=== PATIENT | female | born 1995 | race Hispanic/Latino ===

== ENCOUNTER 2019-01-29 16:31 | Emergency (ER) | payer BC, OTHER ==
--- OUTSIDE RECORDS SUMMARY | 2019-01-29 16:39 | XMS REPORT ---
:1995 Author Organization eClinicalWorks Care Team Providers Name Role Phone Karen Trent Provider Role Unavailable Allergies, Adverse Reactions, Alerts Substance Reaction Event Type N.K.D.A. Info Not Available Non Drug Allergy Problems Problem Type Condition Code Onset Dates Condition Status Assessment Encounter for initial prescription Z30.011 Active of contraceptive pills Medications Medication Code Code Instructions Start End Date Status Dosage System Date Loestrin Fe [facility] [id number] 1-20 MG-MCG Active 1 tablet 1/20 Orally Once a day Results No Known Results Summary Purpose eClinicalWorks Submission
--- OUTSIDE RECORDS SUMMARY | 2019-01-29 16:39 | XMS REPORT ---
:1995 Author Organization eClinicalWorks Care Team Providers Name Role Phone Maggi Lin Provider Role Unavailable Allergies No Known Allergies Problems Problem Type Condition Code Onset Dates Condition Status Problem Positive test Z32.01 Active Problem Low sodium levels E87.1 Active Problem Vitamin D deficiency E55.9 Active Problem Abnormal liver function test R94.5 Active Problem Low hematocrit R71.0 Active Medications No Known Medications Results No Known Results Summary Purpose eClinicalWorks Submission
--- OUTSIDE RECORDS SUMMARY | 2019-01-29 16:39 | XMS REPORT ---
:1995 Author Organization eClinicalWorks Care Team Providers Name Role Phone Nino Rivas Provider Role Unavailable Allergies, Adverse Reactions, Alerts Substance Reaction Event Type N.K.D.A. Info Not Available Non Drug Allergy Problems Problem Type Condition Code Onset Dates Condition Status Assessment Encounter for supervision of Z34.91 Active low-risk in first trimester Assessment Encounter to determine O36.80X0 Active viability of , single or unspecified fetus Problem Positive test Z32.01 Active Problem Low sodium levels E87.1 Active Problem Vitamin D deficiency E55.9 Active Assessment Amenorrhea N91.2 Active Problem Abnormal liver function test R94.5 Active Problem Low hematocrit R71.0 Active Medications Medication Code Code Instructions Start End Date Status Dosage System Date [facility] [id number] 1-20 MG-MCG Active 1 tablet 1/20 Orally Once a day Results Name Result Date Reference Range Unit Abnormality Flag URINALYSIS AUTO W/O SCOPE (49180) ----DELFINO 1+ 20181126 ----KETONES neg [id number] ----SPECIFIC 1.030 20181126 GRAVITY ----BLO neg [id number] ----pH 6.5 20181126 ----PROTEIN neg 20181126 ----URO 0.2 20181126 ----NIT neg 20181126 ----GLUCOSE neg 20181126 ----BILIRUBIN neg 20181126 SURESWAB(R) CHLAMYDIA/ N. GONORRHOEAE RNA, TMA ----CHLAMYDIA NOT DETECTED 20181123 NOT DETECTED N TRACHOMATIS RNA, TMA, UROGENITAL ----NEISSERIA NOT DETECTED [id number] NOT DETECTED N GONORRHOEAE RNA, TMA, UROGENITAL OBSTETRIC PANEL ----ABSOLUTE 23 [id number] 0-200 cells/uL N BASOPHILS ----ABSOLUTE 62 15633702 15-500 cells/uL N EOSINOPHILS ----LYMPHOCYTES 28.0 30596442 % N ----NEUTROPHILS 64.8 60551838 % N ----PLATELET COUNT 246 20181123 140-400 Thousand/uL N ----EOSINOPHILS 0.8 77749989 % N ----RDW 13.2 73357377 11.0-15.0 % N ----MONOCYTES 6.1 33071162 % N ----MCHC 33.9 39396779 32.0-36.0 g/dL N ----MCH 29.2 96602579 27.0-33.0 pg N ----MCV 86.0 23140558 80.0-100.0 fL N ----ABSOLUTE 5054 33566781 7014-4684 cells/uL N NEUTROPHILS ----MPV 10.2 03056839 7.5-12.5 fL N ----ABSOLUTE 476 62406819 200-950 cells/uL N MONOCYTES ----ABSOLUTE 2184 98232338 850-3900 cells/uL N LYMPHOCYTES ----BASOPHILS 0.3 25429642 % N ----ANTIBODY NO ANTIBODIES 20181123 N SCREEN, RBC W/REFL DETECTED ID, TITER AND AG ----ABO GROUP A [id number] ----RH TYPE RH(D) POSITIVE 20181123 ----RPR (DX) NON-REACTIVE 20181123 NON-REACTIVE N W/REFL TITER AND CONFIRMATORY TESTING ----HEPATITIS B NON-REACTIVE 20181123 NON-REACTIVE N SURFACE ANTIGEN ----RUBELLA <0.90 20181123 index L ANTIBODY (IGG) ----WHITE BLOOD 7.8 98038037 3.8-10.8 Thousand/uL N CELL COUNT ----RED BLOOD CELL 4.08 95557004 3.80-5.10 Million/uL N COUNT ----HEMOGLOBIN 11.9 06851767 11.7-15.5 g/dL N ----HEMATOCRIT 35.1 97015787 35.0-45.0 % N VARICELLA ZOSTER VIRUS AB (IGG) ----VARICELLA 156.60 [id number] index L ZOSTER VIRUS ANTIBODY (IGG) HPV RNA, HR E6/E7, TMA ----HPV mRNA E6/E7 Detected 20181123 Not Detected A THINPREP TIS PAP W/REFL HPV RNA HR E6/E7,TMA ----CLINICAL NONE GIVEN 20181123 N INFORMATION: ----LMP: NONE GIVEN 20181123 N ----PREV. PAP: NONE GIVEN 20181123 N ----PREV. BX: NONE GIVEN 20181123 N ----SOURCE: NONE GIVEN 20181123 N CULTURE, URINE, ROUTINE ----CULTURE, SEE NOTE 20181123 A URINE, ROUTINE TRICHOMONAS VAGINALIS, QL TMA, PAP VIAL ----TRICHOMONAS NOT DETECTED 20181123 NOT DETECTED N VAGINALIS, QL TMA, PAP VIAL Summary Purpose eClinicalWorks Submission
--- OUTSIDE RECORDS SUMMARY | 2019-01-29 16:39 | XMS REPORT ---
:1995 Author Organization eClinicalWorks Care Team Providers Name Role Phone Nino Rivas Provider Role Unavailable Allergies No Known Allergies [...]
--- OUTSIDE RECORDS SUMMARY | 2019-01-29 16:39 | XMS REPORT ---
:1995 Author Organization eClinicalWorks Care Team Providers Name Role Phone Maggi Lin Provider Role Unavailable Allergies, Adverse Reactions, Alerts Substance Reaction Event Type N.K.D.A. Info Not Available Non Drug Allergy Problems Problem Type Condition Code Onset Dates Condition Status Assessment Vitamin D deficiency E55.9 Active Assessment Positive test Z32.01 Active Assessment Low hematocrit R71.0 Active Assessment Low sodium levels E87.1 Active Problem Positive test Z32.01 Active Problem Low sodium levels E87.1 Active Problem Vitamin D deficiency E55.9 Active Assessment Abnormal liver function test R94.5 Active Problem Abnormal liver function test R94.5 Active Problem Low hematocrit R71.0 Active Medications Medication Code Code Instructions Start End Date Status Dosage System Date Rogers Fink [facility] [id number] 1-20 MG-MCG Active 1 tablet 1/20 Orally Once a day Results No Known Results Summary Purpose eClinicalWorks Submission
--- OUTSIDE RECORDS SUMMARY | 2019-01-29 16:40 | XMS REPORT ---
:1995 Author Organization eClinicalWorks Care Team Providers Name Role Phone Nino Rivas Provider Role Unavailable Allergies No Known Allergies Problems Problem Type Condition Code Onset Dates Condition Status Assessment Supervision of high risk O09.91 Active in first trimester Problem Abnormal liver function test R94.5 Active Assessment Small stature R62.52 Active Assessment History of shoulder dystocia with O09.291 Active result of fractured clavicle of in prior , currently in first trimester Problem Small stature R62.52 Active Problem History of shoulder dystocia with O09.291 Active result of fractured clavicle of infant in prior , currently in first trimester Problem Supervision of high risk O09.91 Active in first trimester Problem Positive test Z32.01 Active Problem Low sodium levels E87.1 Active Problem Low hematocrit R71.0 Active Problem Vitamin D deficiency E55.9 Active Medications Medication Code Code Instructions Start End Date Status Dosage System Date [facility] [id number] 1-20 MG-MCG Active 1 tablet 1/20 Orally Once a day Results No Known Results Summary Purpose eClinicalWorks Submission
--- OUTSIDE RECORDS SUMMARY | 2019-01-29 16:40 | XMS REPORT ---
:1995 Author Organization eClinicalWorks Care Team Providers Name Role Phone Nino Rivas Provider Role Unavailable Allergies No Known Allergies Problems Problem Type Condition Code Onset Dates Condition Status Problem Abnormal liver function test R94.5 Active Problem Small stature R62.52 Active Problem History of shoulder dystocia with O09.291 Active result of fractured clavicle of infant in prior , currently in first trimester Problem Supervision of high risk O09.91 Active in first trimester Problem Positive test Z32.01 Active Problem Low sodium levels E87.1 Active Problem Low hematocrit R71.0 Active Problem Vitamin D deficiency E55.9 Active Medications No Known Medications Results No Known Results Summary Purpose eClinicalWorks Submission
--- OUTSIDE RECORDS SUMMARY | 2019-01-29 16:40 | XMS REPORT ---
[...] Low hematocrit R71.0 Active Medications Medication Code System Code Instructions Start End Date Status Dosage Date [facility] [id number] 100 MG Orally Nov 29, Dec 06, Active 1 capsule every 12 hrs 2018 2018 with food Results No Known Results Summary Purpose eClinicalWorks Submission
--- OUTSIDE RECORDS SUMMARY | 2019-01-29 16:40 | XMS REPORT ---
:1995 Author Organization eClinicalWorks Care Team Providers Name Role Phone Nino Rivas Provider Role Unavailable Allergies No Known Allergies Problems Problem Type Condition Code Onset Dates Condition Status Problem Vitamin D deficiency E55.9 Active Problem Positive test Z32.01 Active Assessment Small stature R62.52 Active Assessment History of shoulder dystocia with O09.291 Active result of fractured clavicle of in prior , currently in first trimester Assessment Supervision of high risk O09.92 Active in second trimester Problem Supervision of high risk O09.91 Active in first trimester Problem Small stature R62.52 Active Problem Supervision of high risk O09.92 Active in second trimester Problem Low sodium levels E87.1 Active Problem Abnormal liver function test R94.5 Active Problem History of shoulder dystocia with O09.291 Active result of fractured clavicle of in prior , currently in first trimester Problem Low hematocrit R71.0 Active Medications Medication Code Code Instructions Start End Date Status Dosage System Date Rogers Fink [facility][NOTE 3] [id number] 1-20 MG-MCG Active 1 tablet 1/20 Orally Once a day Results No Known Results Summary Purpose eClinicalWorks Submission
--- OUTSIDE RECORDS SUMMARY | 2019-01-29 16:40 | XMS REPORT ---
:1995 Author Organization eClinicalWorks Care Team Providers Name Role Phone Maggi Lin Provider Role Unavailable Allergies No Known Allergies Problems Problem Type Condition Code Onset Dates Condition Status Problem Vitamin D deficiency E55.9 Active Problem Positive test Z32.01 Active Problem Supervision of high risk O09.91 Active [...] trimester Problem Low hematocrit R71.0 Active Medications No Known Medications Results No Known Results Summary Purpose eClinicalWorks Submission
--- NOTE | 2019-01-29 17:57 | EDPHYS ---
Physician Documentation [facility] Name: Melissa Hernandez Age: 23 yrs Sex: Female : 1995 Arrival Date: 01/29/2019 Time: 16:34 Bed 9 Private MD: None, None ED Physician Crystal Cason HPI: 01/29 17:18 This 23 yrs old Female presents to ER via Ambulatory with complaints of Sore ma2 Throat, Ear Pain, 18 wks . 17:18 The patient presents with sore throat. The patient describes throat pain as constant. ma2 Onset: The symptoms/episode began/occurred gradually, 3 day(s) ago. Severity of symptoms: At their worst the symptoms were moderate, in the emergency department the symptoms are unchanged. Associated signs and symptoms: Pertinent negatives chills, dysphagia, fever, headache. The patient has not experienced similar symptoms in the past. 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 - Social history:: Smoking status: Patient/guardian denies using tobacco, Patient/guardian denies using alcohol, street drugs, The patient lives with family. - Ebola Screening: : Patient denies exposure to infectious person Patient denies travel to an Ebola-affected area in the 21 days before illness onset. - Family history:: not pertinent. ROS: 17:18 Constitutional: Negative for fever, chills, and weight loss. ma2 17:18 ENT: Positive for nasal discharge, rhinorrhea, Negative for pulling at ears. 17:18 All other systems are negative. Exam: 17:18 Constitutional: This is a well developed, well nourished patient who is awake, alert, ma2 and in no acute distress. 17:18 Chest/axilla: Normal chest wall appearance and motion. Nontender with no deformity. No lesions are appreciated. Cardiovascular: Regular rate and rhythm with a normal S1 and S2. No gallops, murmurs, or rubs. Normal PMI, no JVD. No pulse deficits. Respiratory: Lungs have equal breath sounds bilaterally, clear to auscultation and percussion. No rales, rhonchi or wheezes noted. No increased work of breathing, no retractions or nasal flaring. Abdomen/GI: Soft, non-tender, with normal bowel sounds. No distension or tympany. No guarding or rebound. No evidence of tenderness throughout. MS/ Extremity: Pulses equal, no cyanosis. Neurovascular intact. Full, normal range of motion. Neuro: Awake and alert, GCS 15, oriented to person, place, time, and situation. Cranial nerves II-XII grossly intact. Motor strength 5/5 in all extremities. Sensory grossly intact. Cerebellar exam normal. Normal gait. 17:18 ENT: Nose: is normal, Posterior pharynx: Airway: normal, Tonsils: are normal in appearance, swelling, is not appreciated, erythema, that is mild, peritonsillar mass, is not appreciated, pooling of secretions, is not appreciated. Vital Signs: 16:39 BP 102 / 65; Pulse 87; Resp 14; Temp 98.7(O); Pulse Ox 100% on R/A; Weight 48.53 kg; ss Height 4 ft. 9 in. (144.78 cm); Pain 3/10; 16:39 Body Mass Index 23.15 (48.53 kg, 144.78 cm) ss MDM: 16:44 Patient medically screened. [facility] 17:18 Differential diagnosis: tonsillitis, upper respiratory infection, viral syndrome. [facility] 17:55 Data reviewed: vital signs, nurses notes. Counseling: I had a detailed discussion with [facility] the patient and/or guardian regarding: the historical points, exam findings, and any diagnostic results supporting the discharge/admit diagnosis, the presence of at least one elevated blood pressure reading (>120/80) during this emergency department visit, the need for outpatient follow up. 01/29 16:56 Order name: Influenza Screen (a \T\ B); Complete Time: 17:55 [facility] 01/29 17:06 Order name: Strep; Complete Time: 17:55 [facility] 01/29 17:48 Order name: Throat Culture EDMS Administered Medications: No medications were administered Disposition: 01/29/19 17:55 Discharged to Home. Impression: Acute upper respiratory infection, unspecified. - Condition is Stable. - Discharge Instructions: Upper Respiratory Infection, Adult. - Medication Reconciliation Form, Thank You Letter, Antibiotic Education, Prescription Opioid Use form. - Follow up: Private Physician; When: Tomorrow; Reason: Continuance of care. Signatures: Dispatcher [employer] EDMarjorie Frederick, RN RN Crystal Cason MD MD ma2 Ashlie Paulino RN RN ls4 Corrections: (The following items were deleted from the chart) 18:09 17:55 01/29/2019 17:55 Discharged to Home. Impression: Acute upper respiratory ls4 infection, unspecified. Condition is Stable. Forms are Medication Reconciliation Form, Thank You Letter, Antibiotic Education, Prescription Opioid Use. Follow up: Private Physician; When: Tomorrow; Reason: Continuance of care. elizabeth
--- NOTE | 2019-01-29 17:57 | ER ---
Nurse's Notes [facility] Name: Melissa Hernandez Age: 23 yrs Sex: Female : 1995 Arrival Date: 01/29/2019 Time: 16:34 Bed 9 Private MD: None, None Diagnosis: Acute upper respiratory infection, unspecified Presentation: 01/29 16:37 Presenting complaint: Patient states: sore throat, runny nose and emigdio ear pain that ss began 2 days ago. Transition of care: patient was not received from another setting of care. Onset of symptoms was January 27, 2019. Risk Assessment: Do you want to hurt yourself or someone else? Patient reports no desire to harm self or others. Initial Sepsis Screen: Does the patient meet any 2 criteria? No. Patient's initial sepsis screen is negative. Does the patient have a suspected source of infection? No. Patient's initial sepsis screen is negative. Note Pt reports she is 18 weeks . Care prior to arrival: None. 16:37 Method Of Arrival: Ambulatory ss 16:37 Acuity: CLIFF 4 ss Triage Assessment: 17:18 General: Appears in no apparent distress. Behavior is calm, cooperative. Pain: ls4 Complains of pain in left aspect of posterior pharynx and right aspect of posterior pharynx Pain currently is 3 out of 10 on a pain scale. EENT: Throat is reddened. Neuro: No deficits noted. Cardiovascular: No deficits noted. Respiratory: No deficits noted. GI: No deficits noted. Musculoskeletal: No deficits noted. 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 - Social history:: Smoking status: Patient/guardian denies using tobacco, Patient/guardian denies using alcohol, street drugs, The patient lives with family. - Ebola Screening: : Patient denies exposure to infectious person Patient denies travel to an Ebola-affected area in the 21 days before illness onset. - Family history:: not pertinent. Screenin:46 Abuse screen: Denies threats or abuse. Denies injuries from another. Nutritional ls4 screening: No deficits noted. Tuberculosis screening: No symptoms or risk factors identified. Fall Risk None identified. Assessment: 16:47 Respiratory: Airway is patent Respiratory effort is even, unlabored, Respiratory ls4 pattern is Breath sounds are clear bilaterally. 18:08 Reassessment: Patient appears in no apparent distress at this time. Patient and/or ls4 family updated on plan of care and expected duration. Pain level reassessed. Patient is alert, oriented x 3, equal unlabored respirations, skin warm/dry/pink. Vital Signs: 16:39 BP 102 / 65; Pulse 87; Resp 14; Temp 98.7(O); Pulse Ox 100% on R/A; Weight 48.53 kg; ss Height 4 ft. 9 in. (144.78 cm); Pain 3/10; 16:39 Body Mass Index 23.15 (48.53 kg, 144.78 cm) ED Course: 16:34 Patient arrived in ED. mr 16:35 None, None is Private Physician. mr 16:38 Triage completed. ss 16:39 Arm band placed on right wrist. 16:44 Crystal Cason MD is Attending Physician. [facility] 16:46 Ashlie Paulino, RN is Primary Nurse. ls4 16:46 Patient has correct armband on for positive identification. Bed in low position. Call ls4 light in reach. Side rails up X 1. 16:46 No provider procedures requiring assistance completed. ls4 18:08 Patient did not have IV access during this emergency room visit. ls4 Administered Medications: No medications were administered Outcome: 17:[address] . [facility] 18:08 Discharged to home ambulatory. ls4 18:08 Condition: good 18:08 Discharge instructions given to patient, family, Instructed on discharge instructions, follow up and referral plans. medication usage, Demonstrated understanding of instructions, follow-up care, medications. 18:09 Patient left the ED. ls4 Signatures: Izabel Guaman AuraMarjorie carson, RN RN Crystal Cason MD MD [facility] Ashlie Paulino, RN RN ls4
[2019-01-29 18:18] VITALS: BP 102/65; TEMP 98.7; O2SAT 100
== END 2019-01-29 18:09 | disposition home or self-care (01) ==
LOC: ER 16:31
DX: O26.892 Other specified pregnancy related conditions, second trimester (principal); J06.9 Acute upper respiratory infection, unspecified
CPT/HCPCS: 87070; 87081; 87804; 99281

== ENCOUNTER 2019-02-04 12:42 | Emergency (ER) | payer BC, OTHER ==
--- OUTSIDE RECORDS SUMMARY | 2019-02-04 12:44 | XMS REPORT ---
[...] Date Status Dosage System Date Rogers Fink [facility] [id number] 1-20 MG-MCG Active 1 tablet 1/20 Orally Once a day Results No Known Results Summary Purpose eClinicalWorks Submission
--- OUTSIDE RECORDS SUMMARY | 2019-02-04 12:44 | XMS REPORT ---
:1995 Author Organization eClinicalWorks Care Team Providers Name Role Phone Nino Rivsa Provider Role Unavailable Allergies No Known Allergies [...]
--- OUTSIDE RECORDS SUMMARY | 2019-02-04 12:44 | XMS REPORT ---
[...] Start End Date Status Dosage System Date [facility] [id number] 1-20 MG-MCG Active 1 tablet 1/20 Orally Once a day Results Name Result Date Reference Range Unit Abnormality Flag URINALYSIS AUTO W/O SCOPE (27321) ----DELFINO 1+ 20181126 ----KETONES neg 20181126 ----SPECIFIC 1.030 20181126 GRAVITY ----BLO neg [id number] ----pH 6.5 20181126 ----PROTEIN neg 20181126 ----URO 0.2 20181126 ----NIT neg 20181126 ----GLUCOSE neg 20181126 ----BILIRUBIN neg 20181126 SURESWAB(R) CHLAMYDIA/ N. GONORRHOEAE RNA, TMA ----CHLAMYDIA NOT DETECTED 20181123 NOT DETECTED N TRACHOMATIS RNA, TMA, UROGENITAL ----NEISSERIA NOT DETECTED 20181123 NOT DETECTED N GONORRHOEAE RNA, TMA, UROGENITAL OBSTETRIC PANEL ----ABSOLUTE 23 50504620 0-200 cells/uL N BASOPHILS ----ABSOLUTE 62 29398762 15-500 cells/uL N EOSINOPHILS ----LYMPHOCYTES 28.0 01262890 % N ----NEUTROPHILS 64.8 06538392 % N ----PLATELET COUNT 246 20181123 140-400 Thousand/uL N ----EOSINOPHILS 0.8 26708628 % N ----RDW 13.2 81161820 11.0-15.0 % N ----MONOCYTES 6.1 61200655 % N ----MCHC 33.9 48886584 32.0-36.0 g/dL N ----MCH 29.2 67777984 27.0-33.0 pg N ----MCV 86.0 31140244 80.0-100.0 fL N ----ABSOLUTE 5054 42631334 5675-0696 cells/uL N NEUTROPHILS ----MPV 10.2 59777892 7.5-12.5 fL N ----ABSOLUTE 476 80114973 200-950 cells/uL N MONOCYTES ----ABSOLUTE 2184 74188407 850-3900 cells/uL N LYMPHOCYTES ----BASOPHILS 0.3 29580371 % N ----ANTIBODY NO ANTIBODIES 20181123 N SCREEN, RBC W/REFL DETECTED ID, TITER AND AG ----ABO GROUP A [id number] ----RH TYPE RH(D) POSITIVE 20181123 ----RPR (DX) NON-REACTIVE 20181123 NON-REACTIVE N W/REFL TITER AND CONFIRMATORY TESTING ----HEPATITIS B NON-REACTIVE 20181123 NON-REACTIVE N SURFACE ANTIGEN ----RUBELLA <0.90 20181123 index L ANTIBODY (IGG) ----WHITE BLOOD 7.8 58070685 3.8-10.8 Thousand/uL N CELL COUNT ----RED BLOOD CELL 4.08 67281514 3.80-5.10 Million/uL N COUNT ----HEMOGLOBIN 11.9 53215501 11.7-15.5 g/dL N ----HEMATOCRIT 35.1 89517956 35.0-45.0 % N VARICELLA ZOSTER VIRUS AB (IGG) ----VARICELLA 156.60 [id number] index L ZOSTER VIRUS ANTIBODY (IGG) HPV [...]
--- OUTSIDE RECORDS SUMMARY | 2019-02-04 12:44 | XMS REPORT ---
[...] Date Status Dosage System Date Loestrin Fe [facility][NOTE 2] [id number] 1-20 MG-MCG Active 1 tablet 1/20 Orally Once a day Results No Known Results Summary Purpose eClinicalWorks Submission
--- OUTSIDE RECORDS SUMMARY | 2019-02-04 12:45 | XMS REPORT ---
[...] Instructions Start End Date Status Dosage Date [facility] [id number] 100 MG Orally Nov 29, Dec 06, Active 1 capsule every 12 hrs 2018 2018 with food Results No Known Results Summary Purpose eClinicalWorks Submission
--- OUTSIDE RECORDS SUMMARY | 2019-02-04 12:45 | XMS REPORT ---
[...] Date Status Dosage System Date Rogers Fink [facility] [id number] 1-20 MG-MCG Active 1 tablet 1/20 Orally Once a day Results No Known Results Summary Purpose eClinicalWorks Submission
--- OUTSIDE RECORDS SUMMARY | 2019-02-04 12:45 | XMS REPORT ---
[...] Start End Date Status Dosage System Date [facility] [id number] 1-20 MG-MCG Active 1 tablet 1/20 Orally Once a day Results No Known Results Summary Purpose eClinicalWorks Submission
[2019-02-04 14:19] LABS: Absolute Lymphocytes (CBC) 0.6 K/uL (0.7-4.9); Absolute Monocytes 0.2 K/uL (0.1-1.3); Absolute Neutrophil 6.1 K/uL (1.8-8.0); Basophils % 0.1 % (0-1.3); Eosinophils % 0.1 % (0-4.4); Hematocrit 34.4 % (36.0-45.0); Lymphocytes % 9.3 % (15.3-44.8); MPV 7.5 fL (7.6-11.3); Monocytes % 3.3 % (3.3-12.3); RBC Red Blood Cell Count 3.84 M/uL (3.86-4.86)
[2019-02-04 14:38] LABS: BUN Blood Urea Nitrogen 9 mg/dL (7-18); Bicarbonate 22 mmol/L (21-32); Glucose Level 102 mg/dL (74-106); Potassium 3.3 mmol/L (3.5-5.1); Sodium Level 137 mmol/L (136-145)
[2019-02-04] MEDS ORDERED: NA CHLORIDE 0.9% 1,000 ML ONE ×2 (15:27→15:49)
[2019-02-04 15:42] LABS: Urine Blood NEGATIVE (NEG); Urine Glucose NEGATIVE (NEG); Urine Protein 2+ (NEG); Urine Specific Gravity >1.030 (1.005-1.030)
--- NOTE | 2019-02-04 15:45 | RAD REPORT ---
EXAM DESCRIPTION: US - OB Limited - 02/04/2019 3:37 pm CLINICAL HISTORY: ABD CRAMPING, age. COMPARISON: OB Limited dated 09/13/2016 FINDINGS: A single cephalic presenting gestation is identified. Heart rate normal. Request exam was a limited study, anatomy survey was not performed. measurements are as follows: BPD:4.3 Centimeters 19 weeks 1 day HC:16.4 Centimeters 19 weeks 1 day AC:14.4 Centimeters 19 weeks 5 days HL:2.9 Centimeters 19 weeks 4 days FL:3.0 Centimeters 19 weeks 3 days The estimated gestational age (EGA) is 19 weeks 3 days with an ELTON of06/28/2019. The placenta is grade 0, anterior in location. No placenta previa. The amniotic fluid volume is normal. The maternal adnexa show no worrisome findings. IMPRESSION: 1. Single, cephalic gestation with an EGA of 19 weeks 3 days and an ELTON of the 9. 2. Limited exam was requested, anatomic survey was not performed. 3. Grade 0, anterior placenta. 4. Amniotic fluid volume is normal.
[2019-02-04] MEDS ORDERED: POTASSIUM 25 MEQ EFFERV TAB ONE (15:48)
[2019-02-04] MEDS ORDERED: ONDANSETRON 4 MG/2 ML VIAL ONE (15:48)
[2019-02-04 15:50] LABS: Blood Morphology Comment NOT SEEN (NOT SEEN); Platelet Estimate ADEQ; Urine White Blood Cell Casts OK
--- NOTE | 2019-02-04 16:11 | ER ---
Nurse's Notes [facility] Name: Melissa Hernandez Age: 23 yrs Sex: Female : 1995 Arrival Date: 02/04/2019 Time: 12:45 Bed 19 Private MD: Maggi Lin Diagnosis: related conditions, unspecified, second trimester;Vomiting;Anemia, unspecified;Hypokalemia Presentation: 02/04 13:10 Presenting complaint: Patient states: thinks she got food poisoning, several family iw members have had similar symptoms since dinner last night, pt c/o lower abd cramping, vomited once this morning, denies diarrhea, pt is 19 weeks , denies vaginal bleeding. Transition of care: patient was not received from another setting of care. Onset of symptoms was February 03, 2019. Risk Assessment: Do you want to hurt yourself or someone else? Patient reports no desire to harm self or others. Initial Sepsis Screen: Does the patient meet any 2 criteria? No. Patient's initial sepsis screen is negative. Does the patient have a suspected source of infection? No. Patient's initial sepsis screen is negative. Care prior to arrival: None. 13:10 Method Of Arrival: Ambulatory iw 13:10 Acuity: CLIFF 3 iw Triage Assessment: 13:34 General: Appears in no apparent distress. uncomfortable. General: Behavior is calm, hj cooperative, appropriate for age. Pain: Complains of pain in abdomen. GI: Abdomen is non-distended. 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 - Social history:: Smoking status: Patient/guardian denies using tobacco. - Ebola Screening: : Patient negative for fever greater than or equal to 101.5 degrees Fahrenheit, and additional compatible Ebola Virus Disease symptoms Patient denies exposure to infectious person Patient denies travel to an Ebola-affected area in the 21 days before illness onset No symptoms or risks identified at this time. - Family history:: not pertinent. Screenin:10 Abuse screen: Denies threats or abuse. Denies injuries from another. Nutritional hj screening: No deficits noted. Tuberculosis screening: No symptoms or risk factors identified. Fall Risk None identified. Assessment: 13:34 GI: Bowel sounds present X 4 quads. Abd is soft and non tender. hj 13:34 General: Appears in no apparent distress. uncomfortable, Behavior is calm, cooperative, hj appropriate for age. Pain: Complains of pain in abdomen. Neuro: Level of Consciousness is awake, alert, obeys commands, Oriented to person, place, time, situation, Appropriate for age. Cardiovascular: Capillary refill < 3 seconds Patient's skin is warm and dry. Respiratory: Airway is patent Respiratory effort is even, unlabored, Respiratory pattern is regular, symmetrical. : No signs and/or symptoms were reported regarding the genitourinary system. EENT: No signs and/or symptoms were reported regarding the EENT system. Derm: No signs and/or symptoms reported regarding the dermatologic system. Musculoskeletal: No signs and/or symptoms reported regarding the musculoskeletal system. 13:50 Reassessment: Patient and/or family updated on plan of care and expected duration. Pain hj level reassessed. Patient is alert, oriented x 3, equal unlabored respirations, skin warm/dry/pink. awaiting orders;. Vital Signs: 13:13 BP 104 / 64; Pulse 104; Resp 16 S; Temp 98.3; Pulse Ox 98% on R/A; Weight 48.53 kg; iw Height 4 ft. 9 in. (144.78 cm); Pain 7/10; 16:31 BP 110 / 70; Pulse 89; Resp 18; Pulse Ox 100% on R/A; hj 13:13 Body Mass Index 23.15 (48.53 kg, 144.78 cm) iw ED Course: 12:45 Patient arrived in ED. mr 12:46 Cruz Craig MD is Private Physician. mr 12:46 Maggi Lin MD is Private Physician. mr 13:07 Tono Benites, MARLEN is Primary Nurse. hj 13:12 Triage completed. iw 13:13 Arm band placed on. iw 13:16 Eric Ruiz MD is Attending Physician. stacy 13:35 Patient has correct armband on for positive identification. Placed in gown. Bed in low hj position. Call light in reach. Side rails up X 1. 14:06 Inserted saline lock: 20 gauge in right antecubital area, using aseptic technique. pc1 15:37 US OB Limited In Process Unspecified. EDMS 16:09 Maggi Lin MD is Referral Physician. stacy 16:10 Cheri Rivas MD is Referral Physician. stacy 16:32 No provider procedures requiring assistance completed. IV discontinued, intact, hj bleeding controlled, No redness/swelling at site. Pressure dressing applied. Administered Medications: 15:12 Drug: NS 0.9% 1000 ml Route: IV; Rate: 1 bolus; Site: right antecubital; hj 16:15 Follow up: IV Status: Completed infusion hj 15:35 Drug: NS 0.9% 1000 ml Route: IV; Rate: 1 bolus; Site: right antecubital; hj 16:15 Follow up: IV Status: Completed infusion hj 15:35 Drug: Potassium Effervescent Tablet 25 mEq Route: PO; hj 16:15 Follow up: Response: No adverse reaction hj 15:35 Drug: Zofran 4 mg Route: IVP; Site: right antecubital; hj 16:14 Follow up: Response: No adverse reaction hj 16:12 Drug: Rocephin - (cefTRIAXone) 1 grams Route: IVPB; Infused Over: 30 mins; Site: right hj antecubital; 16:14 Follow up: IV Status: Completed infusion hj Outcome: 16:10 Discharge ordered by . stacy 16:32 Discharged to home ambulatory, with family. hj 16:32 Condition: stable 16:32 Discharge instructions given to patient, family, Instructed on discharge instructions, follow up and referral plans. medication usage, Demonstrated understanding of instructions, follow-up care, medications, Prescriptions given X 2. 16:35 Patient left the ED. hj Signatures: Dispatcher [employer] EDOR Eric Ruiz MD MD cha Rivera, Natalie Galeana, RN MARLEN Tono Benites RN RN hj Cantu, Patrick pc1
--- NOTE | 2019-02-04 16:11 | EDPHYS ---
Physician Documentation [facility] Name: Melissa Hernandez Age: 23 yrs Sex: Female : 1995 Arrival Date: 02/04/2019 Time: 12:45 Bed 19 Private MD: Maggi Lin ED Physician Eric Ruiz HPI: 02/04 15:12 This 23 yrs old Female presents to ER via Ambulatory with complaints of 19 wks stacy , Abdominal Cramping. 15:12 The patient presents to the emergency department with abdominal pain, of the right stacy upper quadrant, left upper quadrant, right lower quadrant and left lower quadrant. The estimated gestational age is 19 weeks. course: care: private OB physician, Dr. smith. Previous pregnancies: in previous pregnancies patient has had vaginal delivery. Associated signs and symptoms: Pertinent positives: abdominal pain, vomiting. The patient has not experienced similar symptoms in the past. 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 - Social history:: Smoking status: Patient/guardian denies using tobacco. - Ebola Screening: : Patient negative for fever greater than or equal to 101.5 degrees Fahrenheit, and additional compatible Ebola Virus Disease symptoms Patient denies exposure to infectious person Patient denies travel to an Ebola-affected area in the 21 days before illness onset No symptoms or risks identified at this time. - Family history:: not pertinent. ROS: 15:12 Constitutional: Negative for fever, chills, and weight loss, Eyes: Negative for injury, stacy pain, redness, and discharge, ENT: Negative for injury, pain, and discharge, Neck: Negative for injury, pain, and swelling, Cardiovascular: Negative for chest pain, palpitations, and edema, Respiratory: Negative for shortness of breath, cough, wheezing, and pleuritic chest pain, Back: Negative for injury and pain, : Negative for injury, bleeding, discharge, and swelling, MS/Extremity: Negative for injury and deformity, Skin: Negative for injury, rash, and discoloration, Neuro: Negative for headache, weakness, numbness, tingling, and seizure, Psych: Negative for depression, anxiety, suicide ideation, homicidal ideation, and hallucinations, Allergy/Immunology: Negative for hives, rash, and allergies, Endocrine: Negative for neck swelling, polydipsia, polyuria, polyphagia, and marked weight changes, Hematologic/Lymphatic: Negative for swollen nodes, abnormal bleeding, and unusual bruising. 15:12 Abdomen/GI: Positive for abdominal pain, nausea and vomiting. Exam: 15:12 Constitutional: This is a well developed, well nourished patient who is awake, alert, stacy and in no acute distress. Head/Face: Normocephalic, atraumatic. Eyes: Pupils equal round and reactive to light, extra-ocular motions intact. Lids and lashes normal. Conjunctiva and sclera are non-icteric and not injected. Cornea within normal limits. Periorbital areas with no swelling, redness, or edema. ENT: Nares patent. No nasal discharge, no septal abnormalities noted. Tympanic membranes are normal and external auditory canals are clear. Oropharynx with no redness, swelling, or masses, exudates, or evidence of obstruction, uvula midline. Mucous membranes moist. Neck: Trachea midline, no thyromegaly or masses palpated, and no cervical lymphadenopathy. Supple, full range of motion without nuchal rigidity, or vertebral point tenderness. No Meningismus. Chest/axilla: Normal chest wall appearance and motion. Nontender with no deformity. No lesions are appreciated. Respiratory: Lungs have equal breath sounds bilaterally, clear to auscultation and percussion. No rales, rhonchi or wheezes noted. No increased work of breathing, no retractions or nasal flaring. Abdomen/GI: Soft, non-tender, with normal bowel sounds. No distension or tympany. No guarding or rebound. No evidence of tenderness throughout. Back: No spinal tenderness. No costovertebral tenderness. Full range of motion. Female : Normal external genitalia. Skin: Warm, dry with normal turgor. Normal color with no rashes, no lesions, and no evidence of cellulitis. MS/ Extremity: Pulses equal, no cyanosis. Neurovascular intact. Full, normal range of motion. Neuro: Awake and alert, GCS 15, oriented to person, place, time, and situation. Cranial nerves II-XII grossly intact. Motor strength 5/5 in all extremities. Sensory grossly intact. Cerebellar exam normal. Normal gait. 15:12 Cardiovascular: Rate: tachycardic, Rhythm: regular, Pulses: Pulses are 4+ in bilateral radial, brachial, femoral, popliteal, posterior tibial and and dorsalis pedis arteries.. Heart sounds: normal, Edema: is not appreciated, JVD: is not appreciated. Vital Signs: 13:13 BP 104 / 64; Pulse 104; Resp 16 S; Temp 98.3; Pulse Ox 98% on R/A; Weight 48.53 kg; iw Height 4 ft. 9 in. (144.78 cm); Pain 7/10; 16:31 BP 110 / 70; Pulse 89; Resp 18; Pulse Ox 100% on R/A; hj 13:13 Body Mass Index 23.15 (48.53 kg, 144.78 cm) iw MDM: 13:[address] [facility] 15:12 Data reviewed: vital signs, nurses notes, lab test result(s), EKG, radiologic studies, stacy ultrasound. 02/04 13:52 Order name: Abo/rh Typing; Complete Time: 15:35 02/04 13:52 Order name: Basic Metabolic Panel; Complete Time: 15:35 02/04 13:52 Order name: CBC with Diff; Complete Time: 16:08 02/04 14:20 Order name: CBC Smear Scan; Complete Time: 16:08 EDMS 02/04 14:48 Order name: Urine Dipstick--Ancillary (enter results); Complete Time: 16:08 bd 02/04 14:48 Order name: Urine --Ancillary (enter results); Complete Time: 16:08 bd 02/04 13:52 Order name: IV Saline Lock; Complete Time: 14:42 02/04 15:12 Order name: US OB Limited; Complete Time: 16:08 stacy 02/04 13:52 Order name: Labs collected and sent; Complete Time: 14:42 02/04 13:52 Order name: NPO; Complete Time: 13:52 02/04 13:52 Order name: Urine Dipstick-Ancillary (obtain specimen); Complete Time: 14:42 02/04 13:52 Order name: Urine Test (obtain specimen); Complete Time: 14:42 Administered Medications: 15:12 Drug: NS 0.9% 1000 ml Route: IV; Rate: 1 bolus; Site: right antecubital; hj 16:15 Follow up: IV Status: Completed infusion hj 15:35 Drug: NS 0.9% 1000 ml Route: IV; Rate: 1 bolus; Site: right antecubital; hj 16:15 Follow up: IV Status: Completed infusion hj 15:35 Drug: Potassium Effervescent Tablet 25 mEq Route: PO; hj 16:15 Follow up: Response: No adverse reaction hj 15:35 Drug: Zofran 4 mg Route: IVP; Site: right antecubital; hj 16:14 Follow up: Response: No adverse reaction 16:12 Drug: Rocephin - (cefTRIAXone) 1 grams Route: IVPB; Infused Over: 30 mins; Site: right hj antecubital; 16:14 Follow up: IV Status: Completed infusion Disposition: 02/04/19 16:10 Discharged to Home. Impression: related conditions, unspecified, second trimester, Vomiting, Anemia, unspecified, Hypokalemia. - Condition is Stable. - Discharge Instructions: Abdominal Pain During , Anemia, Nonspecific, Potassium Content of Foods, Nausea and Vomiting, Adult, Nausea and Vomiting, Adult, Keuw-cq-Leeq, Abdominal Pain During , Nfni-xa-Bqme, Pelvic Rest, Hypokalemia. - Prescriptions for Diclegis 10- 10 mg Oral tablet,delayed release (DR/EC) - take 1 tablet by ORAL route 3 times per day and 2 tablets at bedtime; 60 tablet. Zofran 4 mg Oral Tablet - take 1 tablet by ORAL route every 12 hours As needed; 20 tablet. - Medication Reconciliation Form, Thank You Letter, Antibiotic Education, Prescription Opioid Use, Family Work Release form. - Follow up: Maggi Lin MD; When: 2 - 3 days; Reason: Recheck today's complaints, Continuance of care, Re-evaluation by your physician. Follow up: Cheri Smith MD; When: 2 - 3 days; Reason: Recheck today's complaints, Re-evaluation by your physician. - Problem is new. - Symptoms have improved. Signatures: Dispatcher [employer] EDEric Romero MD MD cha Williams, Irene, RN Tono Maxwell RN RN hj Corrections: (The following items were deleted from the chart) 16:35 16:10 02/04/2019 16:10 Discharged to Home. Impression: related conditions, hj unspecified, second trimester; Vomiting; Anemia, unspecified; Hypokalemia. Condition is Stable. Forms are Medication Reconciliation Form, Thank You Letter, Antibiotic Education, Prescription Opioid Use. Follow up: Maggi Lin; When: 2 - 3 days; Reason: Recheck today's complaints, Continuance of care, Re-evaluation by your physician. Follow up: Cheri Smith; When: 2 - 3 days; Reason: Recheck today's complaints, Re-evaluation by your physician. Problem is new. Symptoms have improved. stacy
[2019-02-04] MEDS ORDERED: CEFTRIAXONE/SWI 1gm 1 GM/10 ML SYR ONE (16:25)
[2019-02-04 17:11] VITALS: TEMP 98.3
[2019-02-04 17:15] VITALS: BP 110/70; O2SAT 100
== END 2019-02-04 16:35 | disposition home or self-care (01) ==
LOC: ER 12:42
DX: O26.892 Other specified pregnancy related conditions, second trimester (principal); O99.012 Anemia complicating pregnancy, second trimester; R11.10 Vomiting, unspecified; E87.6 Hypokalemia
CPT/HCPCS: 36415; 76815; 80048; 81003; 81025; 85025; 86900; 86901; 96361; 96374; 96375; 99284; J0696; J2405; J7030

== ENCOUNTER 2019-06-12 06:58 | Inpatient (IN) | payer BC, OTHER ==
--- OUTSIDE RECORDS SUMMARY | 2019-06-12 07:03 | XMS REPORT ---
[...] Instructions Start End Date Status Dos[facility] Date [facility] [id number] 100 MG Orally Nov 29, Dec 06, Active 1 capsule every 12 hrs 2018 2018 with food Results No Known Results Summary Purpose eClinicalWorks Submission
--- OUTSIDE RECORDS SUMMARY | 2019-06-12 07:03 | XMS REPORT ---
[...] Dosage System Date Rogers Fink [facility] [id number] 1-20 MG-MCG Active 1 tablet 1/20 Orally Once a day Results No Known Results Summary Purpose eClinicalWorks Submission
--- OUTSIDE RECORDS SUMMARY | 2019-06-12 07:03 | XMS REPORT ---
[...] Start End Date Status Dosage System Date [facility] 46236709214 1-20 MG-MCG Active 1 tablet 1/20 Orally Once a day Results Name Result Date Reference Range Unit Abnormality Flag URINALYSIS AUTO W/O SCOPE (08036) ----DELFINO 1+ [id number] ----KETONES neg [id number] ----SPECIFIC 1.030 20181126 GRAVITY ----BLO neg [id number] ----pH 6.5 20181126 ----PROTEIN neg [id number] ----URO 0.2 20181126 ----NIT neg [id number] ----GLUCOSE neg [id number] ----BILIRUBIN neg [id number] SURESWAB(R) CHLAMYDIA/ N. GONORRHOEAE RNA, TMA ----CHLAMYDIA NOT DETECTED [id number] NOT DETECTED N TRACHOMATIS RNA, TMA, UROGENITAL ----NEISSERIA NOT DETECTED [id number] NOT DETECTED N GONORRHOEAE RNA, TMA, UROGENITAL OBSTETRIC PANEL ----ABSOLUTE 23 20861970 0-200 cells/uL N BASOPHILS ----ABSOLUTE 62 [id number] 15-500 cells/uL N EOSINOPHILS ----LYMPHOCYTES 28.0 35273027 % N ----NEUTROPHILS 64.8 80500987 % N ----PLATELET COUNT 246 [id number] 140-400 Thousand/uL N ----EOSINOPHILS 0.8 26179531 % N ----RDW 13.2 43956786 11.0-15.0 % N ----MONOCYTES 6.1 01265110 % N ----MCHC 33.9 20672713 32.0-36.0 g/dL N ----MCH 29.2 57384146 27.0-33.0 pg N ----MCV 86.0 25076146 80.0-100.0 fL N ----ABSOLUTE 5054 39307274 5685-3161 cells/uL N NEUTROPHILS ----MPV 10.2 11910500 7.5-12.5 fL N ----ABSOLUTE 476 86205827 200-950 cells/uL N MONOCYTES ----ABSOLUTE 2184 90454365 850-3900 cells/uL N LYMPHOCYTES ----BASOPHILS 0.3 97945487 % N ----ANTIBODY NO ANTIBODIES 20181123 N SCREEN, RBC W/REFL DETECTED ID, TITER AND AG ----ABO GROUP A [id number] ----RH TYPE RH(D) POSITIVE [id number] ----RPR (DX) NON-REACTIVE 20181123 NON-REACTIVE N W/REFL TITER AND CONFIRMATORY TESTING ----HEPATITIS B NON-REACTIVE 20181123 NON-REACTIVE N SURFACE ANTIGEN ----RUBELLA <0.90 20181123 index L ANTIBODY (IGG) ----WHITE BLOOD 7.8 10773609 3.8-10.8 Thousand/uL N CELL COUNT ----RED BLOOD CELL 4.08 39809801 3.80-5.10 Million/uL N COUNT ----HEMOGLOBIN 11.9 60449412 11.7-15.5 g/dL N ----HEMATOCRIT 35.1 32804781 35.0-45.0 % N VARICELLA ZOSTER VIRUS AB (IGG) ----VARICELLA 156.60 [id number] index L ZOSTER VIRUS ANTIBODY (IGG) HPV [...]
--- OUTSIDE RECORDS SUMMARY | 2019-06-12 07:04 | XMS REPORT ---
:1995 Author Organization eClinicalWorks Care Team Providers Name Role Phone Nino Rivas Provider Role Unavailable Allergies No Known Allergies Problems Problem Type Condition Code Onset Dates Condition Status Problem Vitamin D deficiency E55.9 Active Problem Positive test Z32.01 Active Assessment Supervision of high risk O09.93 Active in third trimester Problem Supervision of high risk O09.91 [...]
--- OUTSIDE RECORDS SUMMARY | 2019-06-12 07:04 | XMS REPORT ---
[...] Medications Medication Code Code Instructions Start End Status Dosage System Date Date Loestrin Fe [facility] 43178648201 1-20 MG-MCG Active 1 tablet 1/20 Orally Once a day Ferralet 90 [facility] 32710959776 90-1 MG Orally Active 1 tablet Once a day Macrobid [facility] 58286207180 100 MG Orally Active 1 capsule every 12 hrs with food Results No Known Results Summary Purpose eClinicalWorks Submission
--- OUTSIDE RECORDS SUMMARY | 2019-06-12 07:04 | XMS REPORT ---
[...] Status Dosage System Date Date Loestrin Fe [facility] [id number] 1-20 MG-MCG Active 1 tablet 1/20 Orally Once a day Macrobid [facility] 98819929594 100 MG Orally Active 1 capsule every 12 hrs with food Ferralet 90 [facility] 84757357916 90-1 MG Orally Active 1 tablet Once a day Results No Known Results Summary Purpose eClinicalWorks Submission
--- OUTSIDE RECORDS SUMMARY | 2019-06-12 07:04 | XMS REPORT ---
[...] Date Status Dosage System Date Rogers Fink [facility] 38749310150 1-20 MG-MCG Active 1 tablet 1/20 Orally Once a day Results No Known Results Summary Purpose eClinicalWorks Submission
--- OUTSIDE RECORDS SUMMARY | 2019-06-12 07:04 | XMS REPORT ---
[...] Date Status Dosage System Date Rogers Fink [facility] [id number] 1-20 MG-MCG Active 1 tablet 1/20 Orally Once a day Results No Known Results Summary Purpose eClinicalWorks Submission
--- OUTSIDE RECORDS SUMMARY | 2019-06-12 07:04 | XMS REPORT ---
[...] Date Status Dosage System Date Rogers Fink [facility] 25934882738 1-20 MG-MCG Active 1 tablet 1/20 Orally Once a day Results No Known Results Summary Purpose eClinicalWorks Submission
--- OUTSIDE RECORDS SUMMARY | 2019-06-12 07:04 | XMS REPORT ---
[...] Medications Results No Known Results Summary Purpose [facility] Submission
--- OUTSIDE RECORDS SUMMARY | 2019-06-12 07:04 | XMS REPORT ---
[...] Status Dosage System Date Date Loestrin Fe [facility] [id number] 1-20 MG-MCG Active 1 tablet 1/20 Orally Once a day Macrobid [facility] 29214620318 100 MG Orally Active 1 capsule every 12 hrs with food Ferralet 90 [facility] 86031286529 90-1 MG Orally Active 1 tablet Once a day Results No Known Results Summary Purpose eClinicalWorks Submission
--- OUTSIDE RECORDS SUMMARY | 2019-06-12 07:04 | XMS REPORT ---
[...] Start End Date Status Dosage System Date [facility] [id number] 1-20 MG-MCG Active 1 tablet 1/20 Orally Once a day Results No Known Results Summary Purpose eClinicalWorks Submission
--- OUTSIDE RECORDS SUMMARY | 2019-06-12 07:04 | XMS REPORT ---
:1995 Author Organization eClinicalWorks Care Team Providers Name Role Phone Nino Rivas Provider Role Unavailable Allergies, Adverse Reactions, Alerts Substance Reaction Event Type N.K.D.A. Info Not Available Non Drug Allergy Problems Problem Type Condition Code Onset Dates Condition Status Problem Vitamin D deficiency E55.9 Active Problem Positive test Z32.01 Active Assessment Supervision of high risk O09.92 Active [...] Start End Status Dosage System Date Date Macrobid [facility] 36137056855 100 MG Orally March 22, Active 1 capsule every 12 hrs 2018 with food Ferralet 90 [facility] 24893564174 90-1 MG Orally March 22, Active 1 tablet Once a day 2018 Loestrin Fe [facility] 19687220777 1-20 MG-MCG Active 1 tablet 1/20 Orally Once a day Results No Known Results Summary Purpose eClinicalWorks Submission
--- OUTSIDE RECORDS SUMMARY | 2019-06-12 07:04 | XMS REPORT ---
[...] Status Dosage System Date Date Loestrin Fe [facility] 83506235305 1-20 MG-MCG Active 1 tablet 1/20 Orally Once a day Macrobid [facility] 80556444930 100 MG Orally Active 1 capsule every 12 hrs with food Ferralet 90 [facility] [id number] 90-1 MG Orally Active 1 tablet Once a day Results No Known Results Summary Purpose eClinicalWorks Submission
[2019-06-12] MEDS ORDERED: CARBOPROST TROME 250 MCG/ML IM PRN (09:51)
[2019-06-12] MEDS ORDERED: Ringers Lactate 1,000 ML IV PRN (09:51)
[2019-06-12] MEDS ORDERED: METHYLERGONOVINE 0.2MG/ML AMP IM PRN (09:51)
[2019-06-12] MEDS ORDERED: NA CIT/CITRIC AC 30 ML ORAL UDC PO ONE (09:54)
[2019-06-12] MEDS ORDERED: Ringers Lactate 1,000 ML IV SCH (10:00)
--- NOTE | 2019-06-12 10:15 | RAD REPORT ---
EXAM DESCRIPTION: US - OB Complete - 06/12/2019 9:16 am COMPARISON: January 2019 FINDINGS: Single live intrauterine is in cephalic presentation. Placenta is anterior. Amni otic fluid index equals 14.6 centimeters. Cervix 3 centimeters. Cardiac activity varies from 120 to 162 beats per minute. BPD 9 centimeters 37 weeks 5 days (34 weeks 4 days to 40 weeks 6 days.) HC 34.6 centimeters 40 weeks 1 day (37 weeks 3 days to 42 weeks 6 days.) AC 36.1 centimeter 40 weeks 0 days (37 weeks 0 days to 43 weeks 1 day.) FL 7.1 centimeter 36 weeks 3 days (33 weeks 2 days to 39 weeks 4 days.) Estimated weight 3656 grams +/- 548 grams (8 pounds 1 ounces.) Estimated weight 88 percentile. FL divided by AC 19.7 (20 to 24.) FL divided by HC 20.5 (20.8 to 22.9.) Right and left adnexa are unremarkable. No gross abnormality on a limited survey. IMPRESSION: 1. Single live intrauterine in cephalic presentation. 2. Estimated gestational age by a January 2019 ultrasound is 37 weeks 5 days [place] 06/28/2019. 3. Appropriate interval growth. 4. Normal amniotic fluid.
[2019-06-12 10:23] LABS: Absolute Lymphocytes (CBC) 2.7 K/uL (0.7-4.9); Basophils % 0.2 % (0-1.3); Hematocrit 33.3 % (36.0-45.0); Lymphocytes % 24.1 % (15.3-44.8); MPV 8.6 fL (7.6-11.3); Urine Appearance CLEAR; Urine Bilirubin NEGATIVE (NEG); Urine Blood NEGATIVE (NEG); Urine Color YELLOW; Urine Glucose NEGATIVE (NEG); Urine Protein NEGATIVE (NEG); Urine Specific Gravity 1.015 (1.005-1.030); Urine Urobilinogen 0.2 mg/dL (0.2-1.0); Urine pH 6.5 (5.0-7.0)
[2019-06-12 10:25] LABS: Urine Microscopic Reflex ORDER UMIC
[2019-06-12 10:35] LABS: Urine Bacteria <20 /HPF (<20); Urine RBC <5 /HPF (NONE SEEN)
[2019-06-12 10:36] LABS: Urine Culture Reflex Order NOT NEEDED; Urine Mucus Y /HPF (NONE SEEN)
[2019-06-12] MEDS ORDERED: CEFAZOLIN/SWI 2gm 2 GM/20 ML SYR IV SCH (11:00)
[2019-06-12] MEDS ORDERED: METOCLOPRAMIDE 10 MG/2mL INJ IV SCH (11:00)
--- NOTE | 2019-06-12 11:02 | P.OBGYNHP ---
Certification for Inpatient Patient admitted to: Inpatient With expected LOS: >2 Midnights Patient will require the following post-hospital care: None Practitioner: I am a practitioner with admitting privileges, knowledge of patient current condition, hospital course, and medical plan of care. Services: Services provided to patient in accordance with Admission requirements found in Title 42 Section 412.3 of the Code of Federal Regulations Patient History Date of Service: 06/12/19 Reason for admission: Labor, elective section History of Present Illness: Patient is a 23-year-old 001 who presents at 37 weeks and 3 days gestation with leakage of fluid and in labor. Patient 1st presented she was close she is now 2-3 cm dilated and 50% effaced is having consistent contractions. Ultrasound was performed CASEY was normal was 14 cm. membranes appear intact. However patient is in labor. Patient has a history of 1 prior vaginal which resulted in a fracture of the baby's humerus and she delivered a macrosomic . The patient is only 4 feet 8 inches tall and weighs 126 lb. Ultrasound today reveals estimated weight of 8 lb 1 oz which is in the 88th percentile. Patient has seen MFM for this as well and with discussion with MFM and with the patient it was decided that the best mode of delivery for the patient would be to have a section performed with this . Allergies No Known Allergies Allergy (Verified 09/13/16 03:25) Home Medications: Pnv Cmb#95/Ferrous Fumarate/FA [ Tablet] 1 each PO DAILY 09/13/16 Codeine/APAP [Tylenol #3*] 1 tab PO Q6HP PRN #24 tab 09/14/16 - Past Medical/Surgical History Diabetic: No -: Chlamydia February 2016 -: Heart murmur as baby - Family History Father -: Hypertension, Diabetes - Social History Alcohol use: No CD- Drugs: No Caffeine use: Yes Physical Examination Laboratory Data (last 24 hrs) 06/12/19 09:50: WBC 11.2 H, Hgb 11.2 L, Hct 33.3 L, Plt Count 175 Assessment and Plan - Advance Directives Does patient have a Living Will: No Does patient have a Durable POA for Healthcare: No
[2019-06-12] MEDS ORDERED: EPHEDRINE SULF 50 MG/ML VIAL ONE (11:05)
[2019-06-12] MEDS ORDERED: MORPHINE SULFATE/PF 1 MG/ML (10 ML AMP) ONE (11:05)
[2019-06-12] MEDS ORDERED: OXYTOCIN 10 UNIT/ML ML IV ONE (11:05)
[2019-06-12 11:28] VITALS: BMI 27.6
[2019-06-12] MEDS ORDERED: MIDAZOLAM HCL 2 MG/2 ML INJ ONE (11:47)
[2019-06-12] MEDS ORDERED: ACETAMINOPHEN 500 MG TAB PO PRN (12:03)
[2019-06-12] MEDS ORDERED: ONDANSETRON 4 MG (ODT) TAB PO PRN (12:03)
[2019-06-12] MEDS ORDERED: Oxycodone HCl/Acetaminophen 1 TAB TAB PO PRN (12:03)
--- NOTE | 2019-06-12 12:03 | P.OP ---
[employer] Helper: Renita Tomlinson Preoperative diagnosis: Term elective section Postoperative diagnosis: same Primary procedure: Primary low transverse section Secondary procedure: none Anesthesia: Spinal Estimated blood loss: 800cc Specimen: Cord blood, placenta Findings: viable male infant cephalic presentation, 9/9 weight 8lb 8oz Operative Technique: The patient was taken to the operating room where spinal anesthesia was administered without difficulty. The patient was prepped and draped in the usual sterile fashion in the dorsal supine position with a leftward tilt. A Pfannenstiel skin incision was made with the scalpel and carried through to the underlying layer of fascia using the scalpel. The fascia was incised in the midline and extended laterally using Martin scissors. Fernando clamps were used to elevate the superior aspect of the fascial incision, which was elevated, and the underlying rectus muscles were dissected off bluntly and using Martin scissors. Attention was then turned to the inferior aspect of the fascial incision, which in similar fashion was grasped with Fernando clamps, elevated, and the underlying rectus muscles were dissected off bluntly and using the Bovie. The rectus muscles were dissected in the midline. The peritoneum was identified and entered using Metzenbaum scissors; this incision was extended superiorly and inferiorly with good visualization of the bladder. The bladder blade was inserted. The vesicouterine peritoneum was identified and entered sharply using Metzenbaum scissors. This incision was extended laterally and the bladder flap was created digitally. The bladder blade was reinserted. The lower uterine segment was incised in a transverse fashion using the scalpel and extended using bandage scissors as well as manual traction. Clear fluid was noted. The was subsequently delivered. The nose and mouth were bulb suctioned. The cord was clamped and cut. The infant was subsequently handed to the awaiting nursery nurse. The placenta was delivered spontaneously intact with a three-vessel cord noted. The uterus was exteriorized and cleared of all clots and debris. The uterine incision was repaired in 2 layers using 0 vicryol sutures. Hemostasis was visualized. The vesicouterine peritoneum was reapproximated with 3 O Vicryl. The uterus was returned to the abdomen. The uterine incision was reexamined and it was noted to be hemostatic. The rectus muscles were reapproximated in the midline using 0 Vicryl. The fascia was closed with 1 Vicryl suture, the subcutaneous layer was closed with 2-0 plain gut, and the skin was closed with 3 O Vicryl on a Mark needle. Sponge, lap, and instrument counts were correct x2. The patient was stable at the completion of the procedure and was subsequently transferred to the recovery room in stable condition. Complications: None Drain(s): Urinary catheter Transferred to: Recovery Room Condition: Good
[2019-06-12] MEDS ORDERED: ONDANSETRON 4 MG/2 ML VIAL ONE (12:11)
[2019-06-12] MEDS: Oxycodone HCl/Acetaminophen 1 TAB TAB PO PRN ×2 (15:41→22:15)
[2019-06-12 19:49] LABS: RPR (Rapid Plasma Reagin) NON-REACT (NON-REACT)
[2019-06-13 06:40] LABS: Absolute Lymphocytes (CBC) 1.2 K/uL (0.7-4.9); Basophils % 0.1 % (0-1.3); Hematocrit 26.5 % (36.0-45.0); Lymphocytes % 11.6 % (15.3-44.8); MPV 8.3 fL (7.6-11.3); RBC Red Blood Cell Count 2.88 M/uL (3.86-4.86)
[2019-06-13] MEDS: Oxycodone HCl/Acetaminophen 1 TAB TAB PO PRN ×3 (07:00→20:18)
[2019-06-13] MEDS ORDERED: FAMOTIDINE 20 MG/2 ML VIAL IV ONE (10:00)
--- NOTE | 2019-06-13 22:35 | P.PN ---
Date of Service: 06/13/19
[2019-06-14] MEDS: Oxycodone HCl/Acetaminophen 1 TAB TAB PO PRN ×2 (00:45→04:34)
[2019-06-14] MEDS ORDERED: KETOROLAC 30 MG/ML INJ IV PRN (06:03)
[2019-06-14 09:23] VITALS: TEMP 97.8
[2019-06-14] MEDS ORDERED: Tdap (Diph,Pertuss(Acell),Tet Vac) 0.5 ML SYR IMVAC ONE (11:21)
[2019-06-14 12:44] VITALS: BP 111/61
[2019-06-16] MEDS ORDERED: IBUPROFEN 200 MG TAB PO PRN (06:03)
[2019-06-16 12:42] LABS: HBsAG Nonreactive (Nonreactive)
== END 2019-06-14 13:05 | disposition home or self-care (01) | DRG 788 ==
LOC: L&D 06:58 → 2ND-WC 09:05
PROVIDERS: ADMIT Student in an Organized Health Care Education/Training Program; ATTEND Student in an Organized Health Care Education/Training Program
PROC: 10D00Z1 Extraction of Products of Conception, Low, Open Approach (ICD-10-PCS; principal; 2019-06-12 10:50)
DX: O33.5XX0 Maternal care for disproportion due to unusually large fetus, not applicable or unspecified (principal); Z3A.37 37 weeks gestation of pregnancy; Z37.0 Single live birth
CPT/HCPCS: 36415; 76805; 81003; 81015; 85025; 86592; 86850; 86900; 86901; 87340; 88307; 90471; 90715; J2210; J2250; J2405; J2590; J2765

== ENCOUNTER 2019-06-21 16:18 | Emergency (ER) | payer BC, OTHER ==
--- OUTSIDE RECORDS SUMMARY | 2019-06-21 16:21 | XMS REPORT ---
[...] Instructions Start End Date Status Dosage Date [facility] [id number] 100 MG Orally Nov 29, Dec 06, Active 1 capsule every 12 hrs 2018 2018 with food Results No Known Results Summary Purpose eClinicalWorks Submission
--- OUTSIDE RECORDS SUMMARY | 2019-06-21 16:21 | XMS REPORT ---
[...] Date Status Dosage System Date Rogers Fink [facility] [id number] 1-20 MG-MCG Active 1 tablet 1/20 Orally Once a day Results No Known Results Summary Purpose eClinicalWorks Submission
--- OUTSIDE RECORDS SUMMARY | 2019-06-21 16:21 | XMS REPORT ---
[...] Date Status Dosage System Date Rogers Fink [facility] [id number] 1-20 MG-MCG Active 1 tablet 1/20 Orally Once a day Results No Known Results Summary Purpose eClinicalWorks Submission
--- OUTSIDE RECORDS SUMMARY | 2019-06-21 16:21 | XMS REPORT ---
[...] Start End Date Status Dosage System Date [facility] [id number] 1-20 MG-MCG Active 1 tablet 1/20 Orally Once a day Results No Known Results Summary Purpose eClinicalWorks Submission
--- OUTSIDE RECORDS SUMMARY | 2019-06-21 16:21 | XMS REPORT ---
[...] Medications Results No Known Results Summary Purpose [employer] Submission
--- OUTSIDE RECORDS SUMMARY | 2019-06-21 16:21 | XMS REPORT ---
[...] Start End Date Status Dosage System Date [facility] 29173001747 1-20 MG-MCG Active 1 tablet 1/20 Orally Once a day Results Name Result Date Reference Range Unit Abnormality Flag URINALYSIS AUTO W/O SCOPE (43293) ----DELFINO 1+ [id number] ----KETONES neg [id number] ----SPECIFIC 1.030 20181126 GRAVITY ----BLO neg [id number] ----pH 6.5 20181126 ----PROTEIN neg [id number] ----URO 0.2 [id number] ----NIT neg [id number] ----GLUCOSE neg [id number] ----BILIRUBIN neg [id number] SURESWAB(R) CHLAMYDIA/ N. GONORRHOEAE RNA, TMA ----CHLAMYDIA NOT DETECTED [id number] NOT DETECTED N TRACHOMATIS RNA, TMA, UROGENITAL ----NEISSERIA NOT DETECTED [id number] NOT DETECTED N GONORRHOEAE RNA, TMA, UROGENITAL OBSTETRIC PANEL ----ABSOLUTE 23 [id number] 0-200 cells/uL N BASOPHILS ----ABSOLUTE 62 77534509 15-500 cells/uL N EOSINOPHILS ----LYMPHOCYTES 28.0 87306322 % N ----NEUTROPHILS 64.8 15327310 % N ----PLATELET COUNT 246 [id number] 140-400 Thousand/uL N ----EOSINOPHILS 0.8 86460102 % N ----RDW 13.2 [id number] 11.0-15.0 % N ----MONOCYTES 6.1 99696157 % N ----MCHC 33.9 79226301 32.0-36.0 g/dL N ----MCH 29.2 48436659 27.0-33.0 pg N ----MCV 86.0 31854692 80.0-100.0 fL N ----ABSOLUTE 5054 92343841 6771-9505 cells/uL N NEUTROPHILS ----MPV 10.2 59883734 7.5-12.5 fL N ----ABSOLUTE 476 28969141 200-950 cells/uL N MONOCYTES ----ABSOLUTE 2184 46358388 850-3900 cells/uL N LYMPHOCYTES ----BASOPHILS 0.3 65862934 % N ----ANTIBODY NO ANTIBODIES [id number] N SCREEN, RBC W/REFL DETECTED ID, TITER AND AG ----ABO GROUP A [id number] ----RH TYPE RH(D) POSITIVE [id number] ----RPR (DX) NON-REACTIVE [id number] NON-REACTIVE N W/REFL TITER AND CONFIRMATORY TESTING ----HEPATITIS B NON-REACTIVE 20181123 NON-REACTIVE N SURFACE ANTIGEN ----RUBELLA <0.90 20181123 index L ANTIBODY (IGG) ----WHITE BLOOD 7.8 [id number] 3.8-10.8 Thousand/uL N CELL COUNT ----RED BLOOD CELL 4.08 67037528 3.80-5.10 Million/uL N COUNT ----HEMOGLOBIN 11.9 81562956 11.7-15.5 g/dL N ----HEMATOCRIT 35.1 38313032 35.0-45.0 % N VARICELLA ZOSTER VIRUS AB (IGG) ----VARICELLA 156.60 51924396 index L ZOSTER VIRUS ANTIBODY (IGG) HPV [...]
--- OUTSIDE RECORDS SUMMARY | 2019-06-21 16:22 | XMS REPORT ---
[...] Instructions Start End Date Status Dosage Date Ibuprofen [facility] [id number] 600 MG Orally 3x Jun 15, Jul 15, Active 1 tablet a day as needed 2018 2018 with food for pain or milk as needed Results No Known Results Summary Purpose eClinicalWorks Submission
--- OUTSIDE RECORDS SUMMARY | 2019-06-21 16:22 | XMS REPORT ---
[...] End Status Dosage System Date Date Macrobid [facility] 16398267272 100 MG Orally March 22, Active 1 capsule every 12 hrs 2018 with food Ferralet 90 [facility] 84707268938 90-1 MG Orally March 22, Active 1 tablet Once a day 2018 Loestrin Fe [facility] 93968836123 1-20 MG-MCG Active 1 tablet 1/20 Orally Once a day Results No Known Results Summary Purpose eClinicalWorks Submission
--- OUTSIDE RECORDS SUMMARY | 2019-06-21 16:22 | XMS REPORT ---
:1995 Author Organization eClinicalWorks Care Team Providers Name Role Phone Nino Rivas Provider Role Unavailable Allergies, Adverse Reactions, Alerts Substance Reaction Event Type N.K.D.A. Info Not Available Non Drug Allergy Problems Problem Type Condition Code Onset Dates Condition Status Problem Vitamin D deficiency E55.9 Active Problem Positive test Z32.01 Active Assessment Postop check Z09 Active Assessment History of delivery Z98.891 Active Problem Supervision of high risk O09.91 [...] End Status Dosage System Date Date Macrobid [facility] 40810650986 100 MG Orally Active 1 capsule every 12 hrs with food Ibuprofen ND 64538051307 600 MG Orally 3x Jun 15, Jul Active 1 tablet a day as needed 2018 12, with food for pain 2018 or milk as needed Ferralet 90 [facility] 00340987690 90-1 MG Orally Active 1 tablet Once a day Loestrin Fe [facility] 95890120867 1-20 MG-MCG Active 1 tablet 1/20 Orally Once a day Results No Known Results Summary Purpose eClinicalWorks Submission
--- OUTSIDE RECORDS SUMMARY | 2019-06-21 16:22 | XMS REPORT ---
[...] Status Dosage System Date Date Loestrin Fe [facility] 07448408511 1-20 MG-MCG Active 1 tablet 1/20 Orally Once a day Macrobid [facility] 08748431903 100 MG Orally Active 1 capsule every 12 hrs with food Ferralet 90 [facility] 10216726917 90-1 MG Orally Active 1 tablet Once a day Results No Known Results Summary Purpose eClinicalWorks Submission
--- OUTSIDE RECORDS SUMMARY | 2019-06-21 16:22 | XMS REPORT ---
[...] Status Dosage System Date Date Loestrin Fe [facility] 27212034101 1-20 MG-MCG Active 1 tablet 1/20 Orally Once a day Macrobid [facility] 73635110451 100 MG Orally Active 1 capsule every 12 hrs with food Ferralet 90 [facility] 35723933911 90-1 MG Orally Active 1 tablet Once a day Results No Known Results Summary Purpose eClinicalWorks Submission
--- OUTSIDE RECORDS SUMMARY | 2019-06-21 16:22 | XMS REPORT ---
[...] Date Status Dosage System Date Rogers Fink [facility] 86392156452 1-20 MG-MCG Active 1 tablet 1/20 Orally Once a day Results No Known Results Summary Purpose eClinicalWorks Submission
--- OUTSIDE RECORDS SUMMARY | 2019-06-21 16:22 | XMS REPORT ---
[...] Date Status Dosage System Date Rogers Fink [facility] 06158717395 1-20 MG-MCG Active 1 tablet 1/20 Orally Once a day Results No Known Results Summary Purpose eClinicalWorks Submission
--- OUTSIDE RECORDS SUMMARY | 2019-06-21 16:22 | XMS REPORT ---
[...] Status Dosage System Date Date Loestrin Fe [facility] 59653109554 1-20 MG-MCG Active 1 tablet 1/20 Orally Once a day Ferralet 90 [facility] 69476540687 90-1 MG Orally Active 1 tablet Once a day Macrobid [facility] 44132783010 100 MG Orally Active 1 capsule every 12 hrs with food Results No Known Results Summary Purpose eClinicalWorks Submission
--- OUTSIDE RECORDS SUMMARY | 2019-06-21 16:22 | XMS REPORT ---
[...] Status Dosage System Date Date Loestrin Fe [facility] 66576763118 1-20 MG-MCG Active 1 tablet 1/20 Orally Once a day Macrobid [facility] 71333981665 100 MG Orally Active 1 capsule every 12 hrs with food Ferralet 90 [facility] 67424634114 90-1 MG Orally Active 1 tablet Once a day Results No Known Results Summary Purpose eClinicalWorks Submission
--- NOTE | 2019-06-21 17:05 | ER ---
Nurse's Notes [facility] Name: Melissa Hernandez Age: 23 yrs Sex: Female : 1995 Arrival Date: 06/21/2019 Time: 16:21 Bed 23 Private MD: Diagnosis: Chills (without fever) Presentation: 06/21 16:24 Presenting complaint: Patient states: "I had a on June 12 and I feel like aa5 the incision is swollen and Dr. Rivas said to come here". Denies redness, denies drainage. Transition of care: patient was not received from another setting of care. Onset of symptoms was June 2019. Risk Assessment: Do you want to hurt yourself or someone else? Patient reports no desire to harm self or others. Initial Sepsis Screen: Does the patient meet any 2 criteria? No. Patient's initial sepsis screen is negative. Does the patient have a suspected source of infection? No. Patient's initial sepsis screen is negative. Care prior to arrival: None. 16:24 Acuity: CLIFF 3 aa5 16:24 Method Of Arrival: Ambulatory aa5 DIE STAMPER: 16:26 LMP N/A - Recent aa5 Historical: - Allergies: 16:26 No Known Allergies; aa5 - Home Meds: 16:26 Vitamin 27-0.8 mg Oral tab 1 tab once daily [Active]; aa5 - PMHx: 16:26 None; aa5 - PSHx: 16:26 None; aa5 - Immunization history:: Adult Immunizations up to date. - Social history:: Smoking status: Patient/guardian denies using tobacco. - Ebola Screening: : No symptoms or risks identified at this time. Screenin:38 Abuse screen: Denies threats or abuse. Denies injuries from another. Nutritional mg2 screening: No deficits noted. Tuberculosis screening: No symptoms or risk factors identified. Fall Risk None identified. Assessment: 16:38 General: Appears in no apparent distress. comfortable, Behavior is calm, cooperative. mg2 Pain: Complains of pain in abdomen Pain does not radiate. Pain currently is 1 out of 10 on a pain scale. Quality of pain is described as aching, Pain began gradually. Neuro: Level of Consciousness is awake, alert, obeys commands, Oriented to person, place, time, situation. Cardiovascular: Capillary refill < 3 seconds Patient's skin is warm and dry. Respiratory: Airway is patent Respiratory effort is even, unlabored, Respiratory pattern is regular, symmetrical. GI: Reports lower abdominal pain. : EENT: No signs and/or symptoms were reported regarding the EENT system. Derm: Skin is intact, is healthy with good turgor, Skin is pink, warm \\T\\ dry. normal. Musculoskeletal: Circulation, motion, and sensation intact. Capillary refill < 3 seconds. Vital Signs: 16:26 BP 100 / 53; Pulse 87; Resp 18 S; Temp 97.6(TE); Pulse Ox 98% on R/A; Weight 49.9 kg aa5 (R); Height 4 ft. 9 in. (144.78 cm) (R); Pain 3/10; 16:26 Body Mass Index 23.80 (49.90 kg, 144.78 cm) aa5 ED Course: 16:21 Patient arrived in ED. as 16:24 Arm band placed on. aa5 16:26 Triage completed. aa5 16:28 Jas Conklin PA is PHCP. jr 16:28 Dale Shaw MD is Attending Physician. jr 16:33 Shar Rome RN is Primary Nurse. mg2 16:38 No provider procedures requiring assistance completed. Patient did not have IV access mg2 during this emergency room visit. 16:39 Patient has correct armband on for positive identification. mg2 Administered Medications: No medications were administered Outcome: 17:05 Discharge ordered by . jr 17:11 Discharged to home ambulatory. mg2 17:11 Condition: stable 17:11 Discharge instructions given to patient, Instructed on discharge instructions, follow up and referral plans. Demonstrated understanding of instructions, follow-up care. 17:11 Patient left the ED. mg2 Signatures: Renata Magana Audri RN RN aa5 Jas Conklin PA PA jr8 Shar Rome RN RN mg2
--- NOTE | 2019-06-21 17:05 | EDPHYS ---
Physician Documentation [facility] Name: Melissa Hernandez Age: 23 yrs Sex: Female : 1995 Arrival Date: 06/21/2019 Time: 16:21 Bed 23 Private MD: ED Physician Dale Shaw HPI: 06/21 16:42 This 23 yrs old Female presents to ER via Ambulatory with complaints of jr8 Incision Problem. 16:42 Onset: The symptoms/episode began/occurred gradually, 2 day(s) ago. Associated signs jr8 and symptoms: The patient has no apparent associated signs or symptoms. Modifying factors: The patient symptoms are alleviated by nothing, the patient symptoms are aggravated by nothing. The patient has not experienced similar symptoms in the past. The patient has not recently seen a physician. Patient stated that she had a a little over a week ago. Everything has been going well since delivery and surgery. Stated that since yesterday has had had a couple episodes of chills. Called COAL WASHER who wanted her to come in to make sure surgical site is ok. Denies any other symptoms . COAL WASHER: 16:26 LMP N/A - Recent aa5 Historical: - Allergies: 16:26 No Known Allergies; aa5 - Home Meds: 16:26 Vitamin 27-0.8 mg Oral tab 1 tab once daily [Active]; aa5 - PMHx: 16:26 None; aa5 - PSHx: 16:26 None; aa5 - Immunization history:: Adult Immunizations up to date. - Social history:: Smoking status: Patient/guardian denies using tobacco. - Ebola Screening: : No symptoms or risks identified at this time. ROS: 16:42 Eyes: Negative for injury, pain, redness, and discharge, ENT: Negative for injury, jr8 pain, and discharge, Neck: Negative for injury, pain, and swelling, Cardiovascular: Negative for chest pain, palpitations, and edema, Respiratory: Negative for shortness of breath, cough, wheezing, and pleuritic chest pain, Abdomen/GI: Negative for abdominal pain, nausea, vomiting, diarrhea, and constipation, Back: Negative for injury and pain, MS/Extremity: Negative for injury and deformity, Skin: Negative for injury, rash, and discoloration, Neuro: Negative for headache, weakness, numbness, tingling, and seizure. 16:42 Constitutional: Positive for chills. Exam: 16:42 Eyes: Pupils equal round and reactive to light, extra-ocular motions intact. Lids and jr8 lashes normal. Conjunctiva and sclera are non-icteric and not injected. Cornea within normal limits. Periorbital areas with no swelling, redness, or edema. ENT: Nares patent. No nasal discharge, no septal abnormalities noted. Tympanic membranes are normal and external auditory canals are clear. Oropharynx with no redness, swelling, or masses, exudates, or evidence of obstruction, uvula midline. Mucous membranes moist. Neck: Trachea midline, no thyromegaly or masses palpated, and no cervical lymphadenopathy. Supple, full range of motion without nuchal rigidity, or vertebral point tenderness. No Meningismus. Cardiovascular: Regular rate and rhythm with a normal S1 and S2. No gallops, murmurs, or rubs. Normal PMI, no JVD. No pulse deficits. Respiratory: Lungs have equal breath sounds bilaterally, clear to auscultation and percussion. No rales, rhonchi or wheezes noted. No increased work of breathing, no retractions or nasal flaring. Abdomen/GI: Soft, non-tender, with normal bowel sounds. No distension or tympany. No guarding or rebound. No evidence of tenderness throughout. Back: No spinal tenderness. No costovertebral tenderness. Full range of motion. Skin: Warm, dry with normal turgor. Normal color with no rashes, no lesions, and no evidence of cellulitis. MS/ Extremity: Pulses equal, no cyanosis. Neurovascular intact. Full, normal range of motion. Neuro: Awake and alert, GCS 15, oriented to person, place, time, and situation. Cranial nerves II-XII grossly intact. Motor strength 5/5 in all extremities. Sensory grossly intact. Cerebellar exam normal. Normal gait. Vital Signs: 16:26 BP 100 / 53; Pulse 87; Resp 18 S; Temp 97.6(TE); Pulse Ox 98% on R/A; Weight 49.9 kg aa5 (R); Height 4 ft. 9 in. (144.78 cm) (R); Pain 3/10; 16:26 Body Mass Index 23.80 (49.90 kg, 144.78 cm) aa5 MDM: 16:31 Patient medically screened. jr8 17:03 Data reviewed: vital signs, nurses notes, lab test result(s), and as a result, I will jr8 discharge patient. Data interpreted: Pulse oximetry: on room air is 98 %. Interpretation: normal. Counseling: I had a detailed discussion with the patient and/or guardian regarding: the historical points, exam findings, and any diagnostic results supporting the discharge/admit diagnosis, lab results, the need for outpatient follow up, an OB/Gyne specialist, to return to the emergency department if symptoms worsen or persist or if there are any questions or concerns that arise at home. ED course: Patient has no external signs of infection. Physical exam unremarkable. No incisional concern for infection. Recommended rest and see how she does over next day or so. If other symptoms were to evolve or she become worse. To come back for further evaluation. Patient agrees and is good with plan . 06/21 16:58 Order name: Urine Dipstick--Ancillary (enter results) em1 06/21 16:47 Order name: Urine Dipstick-Ancillary (obtain specimen); Complete Time: 16:55 [facility] Administered Medications: No medications were administered Disposition: 06/21/19 17:05 Discharged to Home. Impression: Chills (without fever). - Condition is Stable. - Discharge Instructions: Delivery, Care After. - Medication Reconciliation Form, Thank You Letter, Antibiotic Education, Prescription Opioid Use form. - Follow up: Private Physician; When: 5 - 6 days; Reason: Recheck today's complaints, Continuance of care, Re-evaluation by your physician. - Problem is new. - Symptoms have improved. Addendum: 06/24/2019 09:25 Co-signature as Attending Physician, Dale Shaw MD I agree with the assessment and k dr plan of care. Signatures: Dispatcher [employer] EDMS Dale Shaw MD MD kdr Lashell Cheney RN RN aa5 Jas Conklin PA PA jr8 Shar Rome RN RN mg2 Corrections: (The following items were deleted from the chart) 06/21 17:11 17:05 06/21/2019 17:05 Discharged to Home. Impression: Chills (without fever). mg2 Condition is Stable. Forms are Medication Reconciliation Form, Thank You Letter, Antibiotic Education, Prescription Opioid Use. Follow up: Private Physician; When: 5 - 6 days; Reason: Recheck today's complaints, Continuance of care, Re-evaluation by your physician. Problem is new. Symptoms have improved. jr8
[2019-06-21 17:17] LABS: Urine Blood 3+ (NEG); Urine Glucose NEGATIVE (NEG); Urine Protein TRACE (NEG)
[2019-06-21 18:20] VITALS: BP 100/53; TEMP 97.6; O2SAT 98
== END 2019-06-21 17:11 | disposition home or self-care (01) ==
LOC: ER 16:18
DX: R68.83 Chills (without fever) (principal)
CPT/HCPCS: 81003; 99281

== ENCOUNTER 2019-10-12 14:37 | Emergency (ER) | payer BC, OTHER ==
--- OUTSIDE RECORDS SUMMARY | 2019-10-12 14:40 | XMS REPORT ---
:1995 Author Organization eClinicalWorks Care Team Providers Name Role Phone Nino Rivas Provider Role Unavailable Allergies, Adverse Reactions, Alerts Substance Reaction Event Type N.K.D.A. Info Not Available Non Drug Allergy Problems Problem Type Condition Code Onset Dates Condition Status Problem Vitamin D deficiency E55.9 Active Problem Positive test Z32.01 Active Assessment Encounter for routine Z39.2 Active follow-up Problem Supervision of high risk O09.91 Active [...] End Status Dosage System Date Date Macrobid [facility] 93747753768 100 MG Orally Active 1 capsule every 12 hrs with food Loestrin Fe [facility] 30278806521 1-20 MG-MCG Active 1 tablet 1/20 Orally Once a day Ferralet 90 [facility] 98098601206 90-1 MG Orally Active 1 tablet Once a day Results Name Result Date Reference Range Unit Abnormality Flag URINALYSIS AUTO W/O SCOPE (64139) ----NIT neg [id number] ----URO 0.2 [id number] ----PROTEIN TRACE [id number] ----pH 5.5 20190719 ----BLO neg [id number] ----GLUCOSE neg [id number] ----DELFINO 1+ [id number] ----BILIRUBIN 1+ [id number] ----KETONES neg [id number] ----SPECIFIC GRAVITY 1.030 [id number] Summary Purpose eClinicalWorks Submission
--- OUTSIDE RECORDS SUMMARY | 2019-10-12 14:40 | XMS REPORT ---
:1995 Author Organization eClinicalWorks Care Team Providers Name Role Phone Maggi Lin Provider Role Unavailable Allergies, Adverse Reactions, Alerts Substance Reaction Event Type N.K.D.A. Info Not Available Non Drug Allergy Problems Problem Type Condition Code Onset Dates Condition Status Problem Vitamin D deficiency E55.9 Active Problem Positive test Z32.01 Active Assessment Abnormal urinalysis R82.90 Active Assessment Urinary symptom or sign R39.9 Active Assessment Dysuria R30.0 Active Problem Supervision of high risk O09.91 [...] Start End Status Dosage System Date Date Ferralet 90 [facility] 30450802207 90-1 MG Orally Active 1 tablet Once a day Loestrin Fe [facility] 79790217321 1-20 MG-MCG Active 1 tablet 1/20 Orally Once a day Amoxicillin [facility] 60613839342 500 MG Orally Oct 03, Oct 10, Active 1 tablet Twice a day 2018 2018 Macrobid [facility] 02933087953 100 MG Orally Active 1 capsule every 12 hrs with food Results Name Result Date Reference Range Unit Abnormality Flag URINALYSIS AUTO W/O SCOPE (53439) ----NIT neg [id number] ----URO 0.2 20191003 ----PROTEIN neg 20191003 ----pH 5.5 20191003 ----BLO neg 20191003 ----GLUCOSE neg 20191003 ----DELFINO 1+ 20191003 ----BILIRUBIN neg 20191003 ----KETONES neg 20191003 ----SPECIFIC GRAVITY 1.020 20191003 Summary Purpose eClinicalWorks Submission
--- NOTE | 2019-10-12 16:25 | ER ---
Nurse's Notes [facility] Name: Melissa Hernandez Age: 23 yrs Sex: Female : 1995 Arrival Date: 10/12/2019 Time: 14:41 Bed 13 Private MD: Diagnosis: Other viral infections of unspecified site Presentation: 10/12 14:50 Presenting complaint: Runny nose, sore throat, body aches, and headache x 2 days. hb Denies fever/N/V/D. Transition of care: patient was not received from another setting of care. Onset of symptoms was October 11, 2019. Risk Assessment: Do you want to hurt yourself or someone else? Patient reports no desire to harm self or others. Care prior to arrival: None. 14:50 Method Of Arrival: Ambulatory hb 14:50 Acuity: CLIFF 4 hb 15:00 Initial Sepsis Screen: Does the patient meet any 2 criteria? No. Patient's initial wh sepsis screen is negative. Does the patient have a suspected source of infection? No. Patient's initial sepsis screen is negative. REPRESENTATIVE PHLEBOT[employer]Y SERVICES: 15:00 LMP N/A - Historical: - Allergies: 14:51 No Known Allergies; hb - PMHx: 14:51 None; hb - PSHx: 14:51 None; hb - Immunization history:: Adult Immunizations up to date. - Social history:: Smoking status: Patient/guardian denies using tobacco. - Ebola Screening: : No symptoms or risks identified at this time. Screenin:00 Abuse screen: Denies threats or abuse. Denies injuries from another. Nutritional wh screening: No deficits noted. Tuberculosis screening: No symptoms or risk factors identified. Fall Risk None identified. Assessment: 15:00 General: Appears in no apparent distress. Behavior is calm, cooperative, appropriate wh for age. Pain: Denies pain. Neuro: Level of Consciousness is awake, alert, obeys commands, Oriented to person, place, time, situation, Appropriate for age. Cardiovascular: Heart tones S1 S2. Respiratory: Reports cough that is Breath sounds are clear bilaterally. Respiratory: Airway is patent Respiratory effort is even, unlabored, Respiratory pattern is regular, symmetrical. GI: Abdomen is flat, non-distended. : No signs and/or symptoms were reported regarding the genitourinary system. EENT: No signs and/or symptoms were reported regarding the EENT system. Derm: Skin is intact, is healthy with good turgor, Skin is pink, warm \T\ dry. normal. Musculoskeletal: Circulation, motion, and sensation intact. 15:58 Reassessment: Patient appears in no apparent distress at this time. No changes from previously documented assessment. Patient and/or family updated on plan of care and expected duration. Pain level reassessed. Patient is alert, oriented x 3, equal unlabored respirations, skin warm/dry/pink. Vital Signs: 14:51 BP 105 / 51; Pulse 68; Resp 16; Temp 97.2; Pulse Ox 97% ; Weight 44.45 kg; Height 4 ft. hb 9 in. (144.78 cm); Pain 2/10; 14:51 Body Mass Index 21.21 (44.45 kg, 144.78 cm) hb ED Course: 14:41 Patient arrived in ED. as 14:48 Claritza Merrill is Primary Nurse. 14:48 Mony Ray FNP is PHCP. tn 14:48 Catarino Gordillo MD is Attending Physician. tn 14:50 Triage completed. 14:51 Arm band placed on. 15:00 Patient has correct armband on for positive identification. Bed in low position. Call light in reach. Side rails up X 1. Pulse ox on. 16:42 No provider procedures requiring assistance completed. Patient did not have IV access during this emergency room visit. Administered Medications: No medications were administered Outcome: 16:24 Discharge ordered by . tn 16:42 Discharged to home ambulatory. 16:42 Condition: stable 16:42 Discharge instructions given to patient, Instructed on discharge instructions, follow up and referral plans. POC URTI Demonstrated understanding of instructions, follow-up care, POC 16:43 Patient left the ED. Signatures: Mony Ray FNP FNP tn Renata Magana Heather, RN RN Claritza Merrill Corrections: (The following items were deleted from the chart) 16:06 15:58 Neuro: [facility]
--- NOTE | 2019-10-12 16:25 | EDPHYS ---
Physician Documentation [facility] Name: Melissa Hernandez Age: 23 yrs Sex: Female : 1995 Arrival Date: 10/12/2019 Time: 14:41 Bed 13 Private MD: ED Physician Catarino Gordillo HPI: 10/12 15:16 This 23 yrs old Female presents to ER via Ambulatory with complaints of Cold nh Symptoms. 15:16 Onset: The symptoms/episode began/occurred yesterday. Associated signs and symptoms: nh Pertinent positives: cough, nasal discharge. Modifying factors: The patient symptoms are alleviated by nothing, the patient symptoms are aggravated by nothing. The patient has not experienced similar symptoms in the past. The patient has not recently seen a physician. G[place]OT[place] PACKER: 15:00 LMP N/A - wh Historical: - Allergies: 14:51 No Known Allergies; hb - PMHx: 14:51 None; hb - PSHx: 14:51 None; hb - Immunization history:: Adult Immunizations up to date. - Social history:: Smoking status: Patient/guardian denies using tobacco. - Ebola Screening: : No symptoms or risks identified at this time. ROS: 15:16 Eyes: Negative for injury, pain, redness, and discharge, Neck: Negative for injury, nh pain, and swelling, Cardiovascular: Negative for chest pain, palpitations, and edema, Abdomen/GI: Negative for abdominal pain, nausea, vomiting, diarrhea, and constipation, Back: Negative for injury and pain, : Negative for injury, bleeding, discharge, and swelling, MS/Extremity: Negative for injury and deformity, Skin: Negative for injury, rash, and discoloration, Neuro: Negative for headache, weakness, numbness, tingling, and seizure, Psych: Negative for depression, anxiety, suicide ideation, homicidal ideation, and hallucinations, Allergy/Immunology: Negative for hives, rash, and allergies, Endocrine: Negative for neck swelling, polydipsia, polyuria, polyphagia, and marked weight changes. 15:16 Constitutional: Positive for chills, fatigue. 15:16 ENT: Positive for nasal discharge. 15:16 Respiratory: Positive for cough. Exam: 15:16 Constitutional: This is a well developed, well nourished patient who is awake, alert, nh and in no acute distress. Head/Face: Normocephalic, atraumatic. Eyes: Pupils equal round and reactive to light, extra-ocular motions intact. Lids and lashes normal. Conjunctiva and sclera are non-icteric and not injected. Cornea within normal limits. Periorbital areas with no swelling, redness, or edema. ENT: Nares patent. No nasal discharge, no septal abnormalities noted. Tympanic membranes are normal and external auditory canals are clear. Oropharynx with no redness, swelling, or masses, exudates, or evidence of obstruction, uvula midline. Mucous membranes moist. Neck: Trachea midline, no thyromegaly or masses palpated, and no cervical lymphadenopathy. Supple, full range of motion without nuchal rigidity, or vertebral point tenderness. No Meningismus. Chest/axilla: Normal chest wall appearance and motion. Nontender with no deformity. No lesions are appreciated. Cardiovascular: Regular rate and rhythm with a normal S1 and S2. No gallops, murmurs, or rubs. Normal PMI, no JVD. No pulse deficits. Respiratory: Lungs have equal breath sounds bilaterally, clear to auscultation and percussion. No rales, rhonchi or wheezes noted. No increased work of breathing, no retractions or nasal flaring. Abdomen/GI: Soft, non-tender, with normal bowel sounds. No distension or tympany. No guarding or rebound. No evidence of tenderness throughout. Back: No spinal tenderness. No costovertebral tenderness. Full range of motion. Skin: Warm, dry with normal turgor. Normal color with no rashes, no lesions, and no evidence of cellulitis. MS/ Extremity: Pulses equal, no cyanosis. Neurovascular intact. Full, normal range of motion. Neuro: Awake and alert, GCS 15, oriented to person, place, time, and situation. Cranial nerves II-XII grossly intact. Motor strength 5/5 in all extremities. Sensory grossly intact. Cerebellar exam normal. Normal gait. Psych: Awake, alert, with orientation to person, place and time. Behavior, mood, and affect are within normal limits. Vital Signs: 14:51 BP 105 / 51; Pulse 68; Resp 16; Temp 97.2; Pulse Ox 97% ; Weight 44.45 kg; Height 4 ft. hb 9 in. (144.78 cm); Pain 2/10; 14:51 Body Mass Index 21.21 (44.45 kg, 144.78 cm) MDM: 14:49 Patient medically screened. sc 16:23 Data reviewed: vital signs, nurses notes, lab test result(s), I have discussed the sc patient's presentation/case with the attending Emergency Department Physician; and as a result, I will discharge patient. Counseling: I had a detailed discussion with the patient and/or guardian regarding: the historical points, exam findings, and any diagnostic results supporting the discharge/admit diagnosis, lab results, the need for outpatient follow up, to return to the emergency department if symptoms worsen or persist or if there are any questions or concerns that arise at home. 10/12 14:59 Order name: Flu; Complete Time: 16:04 sc 10/12 14:59 Order name: RSV sc Administered Medications: No medications were administered Disposition: 17:00 Co-signature as Attending Physician, Catarino Gordillo MD. rn Disposition: 10/12/19 16:24 Discharged to Home. Impression: Other viral infections of unspecified site. - Condition is Stable. - Discharge Instructions: Viral Respiratory Infection. - Medication Reconciliation Form, Thank You Letter, Antibiotic Education, Prescription Opioid Use form. - Follow up: Private Physician; When: 2 - 3 days; Reason: Recheck today's complaints. - Problem is new. - Symptoms are unchanged. Signatures: Dispatcher [employer] EDUT Mony Ray, JACK PRIZER [facility] Catarino Gordillo MD MD rn Baxter, Heather, RN RN AurelianoClaritza alexandra Corrections: (The following items were deleted from the chart) 16:43 16:24 10/12/2019 16:24 Discharged to Home. Impression: Other viral infections of unspecified site. Condition is Stable. Forms are Medication Reconciliation Form, Thank You Letter, Antibiotic Education, Prescription Opioid Use. Follow up: Private Physician; When: 2 - 3 days; Reason: Recheck today's complaints. Problem is new. Symptoms are unchanged. sc
[2019-10-12 18:28] VITALS: BP 105/51; TEMP 97.2; O2SAT 97
== END 2019-10-12 16:43 | disposition home or self-care (01) ==
LOC: ER 14:37
DX: B33.8 Other specified viral diseases (principal)
CPT/HCPCS: 87804; 87807; 99283

== ENCOUNTER 2021-04-08 23:48 | Emergency (ER) | payer BC, OTHER ==
--- OUTSIDE RECORDS SUMMARY | 2021-04-08 23:52 | XMS REPORT | Continuity of Care Document ---
:1995 Author Organization [facility] t Address [address] [place] [address] Care Team Providers Name Role Phone Radha Del Castillo Attending Clinician Visit, Nurse Attending Clinician Unavailable Renita Woodard Attending Clinician Problems Condition Condition Condition Status Onset Resolution Last Treating Co mments Source Name Details Category Date Date Treatment Clinician Date Encounter Encounter Diagnosis Active C [facility] initial initial Memoria prescripti prescripti l on of on of Outpati contracept contracept en t radha pills radha pills Clin ics Allergies, Adverse Reactions, Alerts This patient has no known allergies or adverse reactions. Medications Ordered Filled Start Stop Current Ordering Indication Dosage Frequency Signature Comments Components Source Medication Medication Date Date Medication? Clinician (SIG) Name Name Amoxicillin Amoxicillin 2018-11- No Maggi [address] [facility] 12[facility]03 [facility] Loestrin Fe Loestrin Fe Yes Karen [address] [facility] 12[facility]02 12/02 [facility] Macrobid Macrobid Yes Maggi [address] [facility] with food [facility] Ferralet 90 Ferralet 90 Yes Maggi [address] [facility] Loestrin Fe Loestrin Fe Yes Maggi [address] [facility] 12/02 12/[address] [facility] ent Clinics Procedures This patient has no known procedures. Encounters Start End Encounter Admission Attending Care Care Encounter Source Date/Time Date/Time Type Type Clinicians Facility Department ID 2021-03-26 2021-03-26 [place] [id number] 17:54:45 18:14:45 Care [facility] [id number] [place] [id number] Professio [id number] nal 044 [address] 2021-03-03 2021-03-03 Nurse Visit, [place] [id number] 12:55:52 13:28: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 [id number] Nurse [facility] [id number] MATERNAL [id number] & CHILD 107 [facility] 2020-12-09 2020-12-09 Office Romain, [place] [id number] 13:12:27 14:11:02 Visit Anna 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 [id number] REGIONAL [id number] MATERNAL [id number] & CHILD 107 [facility] 2020-08-19 2020-08-19 Outpatient [facility] [id number] [facility]00 [facility] 2020-08-10 2020-08-10 Outpatient [facility] [id number] [facility] 2019-10-03 2019-10-03 [facility] [id number] [facility] 11[facility]00:00 11:00:00 t [facility] 2019-07-19 2019-07-19 [facility] [id number] 10:00:00 10:00:00 t [facility] l Outpati ent Clinics 2019-06-28 2019-06-28 [facility] [id number] [address] 11:56:00 11:56:00 [facility] 2019-06-21 2019-06-21 [facility] [id number] [address] 14:41:00 14:41:00 [facility] 2019-06-19 2019-06-19 [facility] [id number] 14:00:00 14:00:00 [facility] 2019-06-19 2019-06-19 [facility] [id number] [address] 09:22:00 09:22:00 t [facility] - Care [facility] 2019-06-15 2019-06-15 [facility] [id number] 14:23:00 14:23:00 t [facility] - [facility] 2019-06-06 2019-06-06 [facility] [id number] 11:30:00 11:30:00 t [facility] - Care [facility] 2019-05-31 2019-05-31 [facility] [id number] 10:30:00 10:30:00 t [facility] - Care [facility] 2019-05-23 2019-05-23 [facility] [id number] 13:30:00 13:30:00 t [facility] 2019-05-15 2019-05-15 [facility] [id number] 14:15:00 14:15:00 t [facility] - Care [facility] 2019-04-26 2019-04-26 [facility] [id number] 10:30:00 10:30:00 t [facility] - Care [facility] 2019-03-22 2019-03-22 [facility] [id number] 10:30:00 10:30:00 t [facility] - Care [facility] 2019-03-01 2019-03-01 [facility] [id number] 10:45:00 10:45:00 t [facility] - Care [facility] 2019-02-14 2019-02-14 [facility] [id number] 13:30:00 13:30:00 t [facility] - Care [facility] 2019-02-05 2019-02-05 [facility] [id number] 14:44:00 14:44:00 t [facility] - Care [facility] 2019-02-04 2019-02-04 [facility] [id number] 11:43:00 11:43:00 t [facility] es - Care [facility] 2019-01-30 2019-01-30 [facility] [id number] 15:44:00 15:44:00 t [facility] es - Care [facility] 2019-01-28 2019-01-28 [facility] [id number] 14:15:00 14:15:00 t [facility] es - Care [facility] 2019-01-16 2019-01-16 [facility] [id number] 15:15:00 15:15:00 t [facility] - Care [facility] 2019-01-04 2019-01-04 [facility] [id number] 08:38:00 08:38:00 t [facility] es - Care [facility] 2018-12-19 2018-12-19 [facility] [id number] 15:15:00 15:15:00 t [facility] 2018-11-29 2018-11-29 [facility] [id number] 13:46:00 13:46:00 t Womens Womens [facility] 2018-11-29 2018-11-29 [facility] [id number] 13:19:00 13:19:00 t [facility] Womens [facility] 2018-11-27 2018-11-27 [facility] [id number] 15:57:00 15:57:00 t [facility] Womens [facility] 2018-11-22 2018-11-22 [facility] [id number] 14:08:00 14:08:00 t [facility] 2018-11-22 2018-11-22 [facility] [id number] 14:00:00 14:00:00 t [facility] Womens [facility] 2018-11-02 2018-11-02 [facility] [id number] 10:00:00 10:00:00 t [facility] 2018-04-19 2018-04-19 [facility] [id number] 14:15:00 14:15:00 t [facility] Results This patient has no known results.
[2021-04-09] MEDS ORDERED: NA CHLORIDE 0.9% 1,000 ML ONE (02:05)
[2021-04-09 02:06] LABS: Absolute Lymphocytes (CBC) 1.8 K/uL (0.7-4.9); Basophils % 0.6 % (0-1.3); Hematocrit 40.2 % (36.0-45.0); Lymphocytes % 20.9 % (15.3-44.8); MPV 7.4 fL (7.6-11.3); RBC Red Blood Cell Count 4.71 M/uL (3.86-4.86)
[2021-04-09 02:45] LABS: ALT/SGPT 64 U/L (12-78); AST/SGOT 20 U/L (15-37); Albumin 3.8 g/dL (3.4-5.0); Alkaline Phosphatase 88 U/L (45-117); BUN Blood Urea Nitrogen 11 mg/dL (7-18); Bicarbonate 24 mmol/L (21-32); Bilirubin Direct < 0.1 mg/dL (0-0.2); Bilirubin Total 0.3 mg/dL (0.2-1.0); Glucose Level 95 mg/dL (74-106); Lipase 103 U/L (73-393); Potassium 4.3 mmol/L (3.5-5.1); Protein, Total 8.8 g/dL (6.4-8.2); Sodium Level 139 mmol/L (136-145)
[2021-04-09 03:40] LABS: Urine Blood Negative (Negative); Urine Glucose Negative (Negative); Urine Protein Negative (Negative); Urine Specific Gravity 1.025 (1.005-1.030)
[2021-04-09] MEDS ORDERED: CEFTRIAXONE/SWI 1gm 1 GM/10 ML SYR ONE (04:17)
[2021-04-09 04:51] LABS: Urine Bacteria >50 /HPF (<20); Urine Mucus 2+ /HPF (NONE SEEN)
[2021-04-09 05:05] LABS: Urine Specific Gravity/Preg 1.025 (1.005-1.030)
[2021-04-09] MEDS ORDERED: METRONIDAZOLE 500mg IVPB 500 MG/100 ML BAG IV ONE (05:25)
--- NOTE | 2021-04-09 06:13 | EDPHYS ---
Physician Documentation [facility] Name: Melissa Hernandez Age: 25 yrs Sex: Female : 1995 Arrival Date: 04/08/2021 Time: 23:51 Bed 5 Private MD: ED Physician Dung Reyes HPI: 04/09 03:30 This 25 yrs old Female presents to ER via Ambulatory with complaints of mh7 Diarrhea, Bloody Stools. 03:30 The patient presents to the emergency department with diarrhea, that is intermittent, mh7 abdominal pain, of the suprapubic area, right lower quadrant and left lower quadrant, described as crampy, intermittent, waxing and waning, and does not radiate. Onset: The symptoms/episode began/occurred 3 day(s) ago. Possible causes: unknown. The symptoms are aggravated by nothing. The symptoms are alleviated by nothing. Associated signs and symptoms: Pertinent negatives: anorexia, belching, constipation, dysuria, fever, flatulence, hematuria, nausea, vaginal discharge, vomiting. 03:35 Severity of symptoms: At their worst the symptoms were moderate 2 day(s) ago, in the [facility] emergency department the symptoms have improved moderately. 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 - Social history:: Smoking status: Patient denies any tobacco usage or history of. ROS: 03:35 Constitutional: Negative for fever, chills, and weight loss, Eyes: Negative for injury, mh7 pain, redness, and discharge, ENT: Negative for injury, pain, and discharge, Neck: Negative for injury, pain, and swelling, Cardiovascular: Negative for chest pain, palpitations, and edema, Respiratory: Negative for shortness of breath, cough, wheezing, and pleuritic chest pain, Back: Negative for injury and pain, : Negative for injury, bleeding, discharge, and swelling, MS/Extremity: Negative for injury and deformity, Skin: Negative for injury, rash, and discoloration, Neuro: Negative for headache, weakness, numbness, tingling, and seizure, Psych: Negative for depression, anxiety, suicide ideation, homicidal ideation, and hallucinations, Allergy/Immunology: Negative for hives, rash, and allergies, Endocrine: Negative for neck swelling, polydipsia, polyuria, polyphagia, and marked weight changes, Hematologic/Lymphatic: Negative for swollen nodes, abnormal bleeding, and unusual bruising. Exam: 03:35 Constitutional: This is a well developed, well nourished patient who is awake, alert, mh7 and in no acute distress. Head/Face: Normocephalic, atraumatic. Eyes: Pupils equal round and reactive to light, extra-ocular motions intact. Lids and lashes normal. Conjunctiva and sclera are non-icteric and not injected. Cornea within normal limits. Periorbital areas with no swelling, redness, or edema. Neck: Trachea midline, no thyromegaly or masses palpated, and no cervical lymphadenopathy. Supple, full range of motion without nuchal rigidity, or vertebral point tenderness. No Meningismus. Chest/axilla: Normal chest wall appearance and motion. Nontender with no deformity. No lesions are appreciated. Cardiovascular: Regular rate and rhythm with a normal S1 and S2. No gallops, murmurs, or rubs. Normal PMI, no JVD. No pulse deficits. Respiratory: Lungs have equal breath sounds bilaterally, clear to auscultation and percussion. No rales, rhonchi or wheezes noted. No increased work of breathing, no retractions or nasal flaring. Abdomen/GI: Soft, non-tender, with normal bowel sounds. No distension or tympany. No guarding or rebound. No evidence of tenderness throughout. Back: No spinal tenderness. No costovertebral tenderness. Full range of motion. Skin: Warm, dry with normal turgor. Normal color with no rashes, no lesions, and no evidence of cellulitis. MS/ Extremity: Pulses equal, no cyanosis. Neurovascular intact. Full, normal range of motion. Neuro: Awake and alert, GCS 15, oriented to person, place, time, and situation. Cranial nerves II-XII grossly intact. Motor strength 5/5 in all extremities. Sensory grossly intact. Cerebellar exam normal. Normal gait. Psych: Awake, alert, with orientation to person, place and time. Behavior, mood, and affect are within normal limits. Vital Signs: 00:23 BP 110 / 78; Pulse 96; Resp 16 S; Temp 98.7(O); Pulse Ox 99% on R/A; Weight 46.72 kg bb (R); Height 4 ft. 9 in. (144.78 cm) (R); Pain 5/10; 04:00 BP 109 / 66; Pulse 93; Resp 16; Pulse Ox 97% on R/A; jb4 06:15 BP 95 / 55; Pulse 79; Resp 16; Pulse Ox 100% on R/A; jb4 00:23 Body Mass Index 22.29 (46.72 kg, 144.78 cm) bb MDM: 06:10 Differential diagnosis: Nonspecific abd pain, gastritis, appendicitis, diverticulitis, mh7 viral gastroenteritis, gastroenteritis. Data reviewed: vital signs, nurses notes, lab test result(s), CBC, urinalysis, bacteruria, UPT: negative. Data interpreted: Pulse oximetry: on room air is 97 %. Interpretation: normal. Counseling: I had a detailed discussion with the patient and/or guardian regarding: the historical points, exam findings, and any diagnostic results supporting the discharge/admit diagnosis, lab results, radiology results, the need for outpatient follow up, to return to the emergency department if symptoms worsen or persist or if there are any questions or concerns that arise at home. Response to treatment: the patient's symptoms have markedly improved after treatment. 06:12 Patient medically screened. [facility] 04/09 01:33 Order name: Basic Metabolic Panel [facility] 04/09 01:33 Order name: CBC with Diff; Complete Time: 02:56 [facility] 04/09 01:33 Order name: Hepatic Function; Complete Time: 02:56 [facility] 04/09 01:33 Order name: Lipase; Complete Time: 02:56 [facility] 04/09 01:34 Order name: Basic Metabolic Panel; Complete Time: 02:56 [facility] 04/09 03:40 Order name: Urine Dipstick-Ancillary; Complete Time: 03:41 [facility] 04/09 03:29 Order name: CT Abd/Pelvis - IV Contrast Only [facility] 04/09 03:41 Order name: Urine --Ancillary (enter results); Complete Time: 06:10 2 04/09 03:46 Order name: Urine Culture [facility] 04/09 03:46 Order name: Urine Microscopic Only [facility] 04/09 03:46 Order name: Urine Culture [facility] 04/09 03:46 Order name: Urine Microscopic Only; Complete Time: 06:10 [facility] 04/09 01:33 Order name: IV Saline Lock; Complete Time: 01:56 [facility] 04/09 01:33 Order name: Labs collected and sent; Complete Time: 01:56 [facility] 04/09 01:33 Order name: Urine Dipstick-Ancillary (obtain specimen); Complete Time: 04:04 [facility] 04/09 01:33 Order name: Urine Test (obtain specimen); Complete Time: 04:04 Administered Medications: 01:56 Drug: NS 0.9% 1000 ml Route: IV; Rate: 1000 ml; Site: right forearm; jb4 04:13 Drug: Rocephin (cefTRIAXone) 1 grams Route: IV; Rate: per protocol; Site: right forearm;jb4 05:12 Drug: Flagyl (metroNIDAZOLE) 500 mg Volume: 100 ml; Route: IVPB; Rate: 200 ml/hr; jb4 Infused Over: 30 mins; Site: right wrist; 05:42 Follow up: Response: No adverse reaction; IV Status: Completed infusion; IV Intake: jb4 100ml Disposition: 04/09/21 06:12 Discharged to Home. Impression: Colitis, Urinary tract infection, site not specified. - Condition is Stable. - Discharge Instructions: Urinary Tract Infection, Adult, [id number], Colitis. - Prescriptions for Zofran ODT 4 mg Oral tablet,disintegrating - place 1 tablet by TRANSLINGUAL route every 8 hours As needed; 6 tablet. Bentyl 20 mg Oral Tablet - take 1 tablet by ORAL route every 6 hours As needed; 20 tablet. Flagyl 500 mg Oral Tablet - take 1 tablet by ORAL route every 8 hours for 7 days; 21 tablet. Cipro 500 mg Oral Tablet - take 1 tablet by ORAL route every 12 hours for 7 days; 14 tablet. - Work release form, Medication Reconciliation Form, Thank You Letter, Antibiotic Education, Prescription Opioid Use form. - Follow up: Private Physician; When: 1 - 2 days; Reason: Worsening of condition, Recheck today's complaints, Continuance of care, Re-evaluation by your physician. Follow up: Antonio Canas MD; When: 1 - 2 days; Reason: Worsening of condition, Recheck today's complaints. - Problem is new. - Symptoms have improved. Signatures: Dispatcher [employer] EDTona Dahl RN RN Paulo Tan RN RN jb4 Dung Reyes MD MD mh7 Corrections: (The following items were deleted from the chart) 06:33 06:12 04/09/2021 06:12 Discharged to Home. Impression: Colitis; Urinary tract jb4 infection, site not specified. Condition is Stable. Forms are Medication Reconciliation Form, Thank You Letter, Antibiotic Education, Prescription Opioid Use. Follow up: Private Physician; When: 1 - 2 days; Reason: Worsening of condition, Recheck today's complaints, Continuance of care, Re-evaluation by your physician. Follow up: Antonio Canas; When: 1 - 2 days; Reason: Worsening of condition, Recheck today's complaints. Problem is new. Symptoms have improved. mh7
--- NOTE | 2021-04-09 06:13 | ER ---
Nurse's Notes [facility] Name: Melissa Hernandez Age: 25 yrs Sex: Female : 1995 Arrival Date: 04/08/2021 Time: 23:51 Bed 5 Private MD: Diagnosis: Colitis;Urinary tract infection, site not specified Presentation: 04/09 00:23 Chief complaint: Patient states: she started having bright red blood with bowel bb movements x 2 days with 3 episodes and some lower abdominal cramping, states she has been getting over a cold. Coronavirus screen: At this time, the client does not indicate any symptoms associated with coronavirus-19. Ebola Screen: No symptoms or risks identified at this time. Initial Sepsis Screen: Does the patient meet any 2 criteria? No. Patient's initial sepsis screen is negative. Does the patient have a suspected source of infection? No. Patient's initial sepsis screen is negative. Risk Assessment: Do you want to hurt yourself or someone else? Patient reports no desire to harm self or others. Onset of symptoms was April 06, 2021. 00:23 Method Of Arrival: Ambulatory bb 00:23 Acuity: CLIFF 3 bb Triage Assessment: 00:25 General: Appears in no apparent distress. uncomfortable, Behavior is calm, cooperative. bb Pain: Complains of pain in abdomen Pain currently is 5 out of 10 on a pain scale. Neuro: Level of Consciousness is awake, alert, obeys commands, Oriented to person, place, time, situation. Cardiovascular: Capillary refill < 3 seconds Patient's skin is warm and dry. Respiratory: Respiratory effort is even, unlabored, Respiratory pattern is regular. GI: Abdomen is non-distended, Reports diarrhea, rectal bleeding. Derm: Skin is pink, warm \T\ dry. Musculoskeletal: Circulation, motion, and sensation intact. 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 - Social history:: Smoking status: Patient denies any tobacco usage or history of. Screenin:55 Abuse screen: Denies threats or abuse. Nutritional screening: No deficits noted. jb4 Tuberculosis screening: No symptoms or risk factors identified. Fall Risk None identified. Assessment: 00:55 General: Appears in no apparent distress. comfortable, Behavior is calm, cooperative. jb4 Pain: Complains of pain in abdomen Pain does not radiate. Pain currently is 4 out of 10 on a pain scale. Quality of pain is described as crampy. Neuro: Level of Consciousness is awake, alert, obeys commands, Oriented to person, place, time, situation. Cardiovascular: Patient's skin is warm and dry. Respiratory: Airway is patent Respiratory effort is even, unlabored, Respiratory pattern is regular, symmetrical. GI: Reports lower abdominal pain, diarrhea, rectal bleeding. : No signs and/or symptoms were reported regarding the genitourinary system. EENT: No signs and/or symptoms were reported regarding the EENT system. Derm: Skin is intact, Skin is pink, warm \T\ dry. Musculoskeletal: Circulation, motion, and sensation intact. Range of motion: intact in all extremities. 01:27 Reassessment: Provider at the bedside for examination. jb4 02:00 Reassessment: Patient appears in no apparent distress at this time. Patient and/or jb4 family updated on plan of care and expected duration. Pain level reassessed. Patient is alert, oriented x 3, equal unlabored respirations, skin warm/dry/pink. 03:00 Reassessment: Patient appears in no apparent distress at this time. Patient and/or jb4 family updated on plan of care and expected duration. Pain level reassessed. Patient is alert, oriented x 3, equal unlabored respirations, skin warm/dry/pink. 04:13 Reassessment: Patient appears in no apparent distress at this time. Patient and/or jb4 family updated on plan of care and expected duration. Pain level reassessed. Patient is alert, oriented x 3, equal unlabored respirations, skin warm/dry/pink. 05:00 Reassessment: Patient appears in no apparent distress at this time. Patient and/or jb4 family updated on plan of care and expected duration. Pain level reassessed. Patient is alert, oriented x 3, equal unlabored respirations, skin warm/dry/pink. 05:54 Reassessment: Patient and/or family updated on plan of care and expected duration. Pain jb4 level reassessed. Pt is resting in bed with even and unlabored respirations. No s/s of pain or distress noted. Vital Signs: 00:23 BP 110 / 78; Pulse 96; Resp 16 S; Temp 98.7(O); Pulse Ox 99% on R/A; Weight 46.72 kg bb (R); Height 4 ft. 9 in. (144.78 cm) (R); Pain 5/10; 04:00 BP 109 / 66; Pulse 93; Resp 16; Pulse Ox 97% on R/A; jb4 06:15 BP 95 / 55; Pulse 79; Resp 16; Pulse Ox 100% on R/A; jb4 00:23 Body Mass Index 22.29 (46.72 kg, 144.78 cm) bb ED Course: 04/08 23:51 Patient arrived in ED. cf2 04/09 00:25 Triage completed. bb 00:25 Arm band placed on Patient placed in waiting room, Patient notified of wait time. bb 00:55 Paulo Aguilar, RN is Primary Nurse. jb4 00:55 Patient has correct armband on for positive identification. Placed in gown. Bed in low jb4 position. Call light in reach. Side rails up X 1. 01:01 Dung Reyes MD is Attending Physician. 7 01:32 Served as a broke man during rectal exam. bb 04:11 CT Abd/Pelvis - IV Contrast Only In Process Unspecified. EDMS 06:11 Antonio Canas MD is Referral Physician. 7 06:33 IV discontinued, intact, bleeding controlled, No redness/swelling at site. Pressure jb4 dressing applied. Administered Medications: 01:56 Drug: NS 0.9% 1000 ml Route: IV; Rate: 1000 ml; Site: right forearm; jb4 04:13 Drug: Rocephin (cefTRIAXone) 1 grams Route: IV; Rate: per protocol; Site: right forearm;jb4 05:12 Drug: Flagyl (metroNIDAZOLE) 500 mg Volume: 100 ml; Route: IVPB; Rate: 200 ml/hr; jb4 Infused Over: 30 mins; Site: right wrist; 05:42 Follow up: Response: No adverse reaction; IV Status: Completed infusion; IV Intake: jb4 100ml Intake: 05:42 IV: 100ml; Total: 100ml. jb4 Outcome: 06:12 Discharge ordered by . mh7 06:32 Discharged to home ambulatory. jb4 06:32 Condition: stable 06:32 Discharge instructions given to patient, Instructed on discharge instructions, follow up and referral plans. medication usage, Demonstrated understanding of instructions, follow-up care, medications, Prescriptions given X 4. 06:33 Patient left the ED. jb4 Signatures: Dispatcher [employer] EDTona Dahl RN RN bb Bryson, James, RN RN jb4 Melanie Brown cf2 Dung Reyes MD MD mh7
[2021-04-09 06:57] VITALS: TEMP 98.7
[2021-04-09 07:04] VITALS: BP 95/55; O2SAT 100
--- NOTE | 2021-04-09 19:04 | RAD REPORT ---
EXAM DESCRIPTION: CT Abdomen and Pelvis COMPARISON: None. CLINICAL HISTORY: [facility] MAIN ABD PAIN TECHNIQUE: CT of the abdomen and pelvis was acquired with IV contrast material. Coronal and sagitt al reconstructions were obtained. Automated exposure control was utilized on this examination as a dose lowering technique. FINDINGS: Lung bases: Clear. Liver: Normal. Gallbladder and biliary: Normal gallbladder. Unremarkable biliary tree. Pancreas: Normal. Spleen: Normal. Adrenal glands: Normal adrenal glands. Kidneys: A few small left renal cysts are noted. Normal right kidney. Stomach and Small Bowel: The stomach and small bowel are normal. Urinary bladder: Normal. Uterus and Adnexa: Normal. Colon and Appendix: Mild wall thickening of the ascending colon is present. No evidence of appendicit is. Retroperitoneum and lymph nodes: Normal. Vascular: Normal. Peritoneal cavity: Trace pelvic fluid is likely physiologic. No intraperitoneal free air. Musculoskeletal and soft tissues: Soft tissues are unremarkable. No aggressive bone lesions. No com pression fracture. IMPRESSION: Mild ascending colonic wall thickening may be seen with mild infectious or inflammatory colitis. Electronically signed by: Ruperto Canchola MD 04/09/2021 4:31 AM CDT Due to temporary technical issues with the PACS/Fluency reporting system, reports are being signed by the in house radiologists without review as a courtesy to insure prompt reporting. The interpreting radiologist is fully responsible for the content of the report.
== END 2021-04-09 06:33 | disposition home or self-care (01) ==
LOC: ER 23:48
DX: K52.9 Noninfective gastroenteritis and colitis, unspecified (principal); N39.0 Urinary tract infection, site not specified
CPT/HCPCS: 96365; 87088; 85025; 87086; 80048; 36415; 81025; 80076; 83690; 74177; 96375; 99284; Q9967; J0696; J7030; 81003; 81015